=== PATIENT | male | born 1970 | race Caucasian/White ===

== ENCOUNTER 2017-01-09 09:15 | Emergency (ER) | payer OTHER ==
[2017-01-09 09:20] VITALS: BP 155/90; PULSE 74; RESP 18; TEMP 97.8
[2017-01-09] MEDS ORDERED: PROPARACAINE 0.5% OPHTH DROPS 15 ML BTL BOTH EYES STA (09:28)
[2017-01-09] MEDS ORDERED: KETOTIFEN 0.025% OPHTH DROPS 5 ML BTL BOTH EYES STA (09:28)
[2017-01-09] MEDS ORDERED: TOBRAMYCIN 0.3% OPHTH DROPS 5 ML BTL BOTH EYES STA (09:29)
--- NOTE | 2017-01-09 09:41 | ED ---
Eye Problem HPI - General Chief complaint: Eye Problems Stated complaint: Eye Pain Time Seen by Provider: 01/09/17 09:25 Source: patient, RN notes reviewed Mode of arrival: ambulatory Limitations: no limitations - History of Present Illness Initial comments: 46-year-old male presents emergency Department chief complaint bilateral eye irritation. Patient states it started while at work but never had any contact to any chemicals that he knows of. Nothing/his eyes. Patient states she just feels there. She, burning. Patient has not tried any eyedrops. Denies any visual changes. Patient states it's tearing and some crusting noted. Patient states he was glasses for vision. Patient offers no other complaints. - Related Data Home Medications Medication Instructions Recorded Confirmed No Known Home Medications [No 01/09/17 01/09/17 Known Home Medications] Allergies Allergy/AdvReac Type Severity Reaction Status Date / Time Penicillins Allergy Swelling Verified 01/09/17 09:20 Review of Systems ROS Statement: Those systems with pertinent positive or pertinent negative responses have been documented in the HPI. ROS Other: All systems not noted in ROS Statement are negative. Past Medical History Past Medical History: Seizure Disorder History of Any Multi-Drug Resistant Organisms: None Reported Past Surgical History: No Surgical Hx Reported Past Psychological History: No Psychological Hx Reported Smoking Status: Current every day smoker Past Alcohol Use History: None Reported Past Drug Use History: None Reported General Exam Limitations: no limitations General appearance: alert, in no apparent distress Head exam: Present: atraumatic, normocephalic, normal inspection Eye exam: Present: PERRL, EOMI, conjunctival injection, other (Patient states that his symptoms improved with proparacaine, Wood's lamp and dye were used to evaluate that there is some conjunctival irritation noted). Absent: normal appearance, scleral icterus, periorbital swelling ENT exam: Present: normal exam, normal oropharynx, mucous membranes moist, TM's normal bilaterally, normal external ear exam Neck exam: Present: normal inspection. Absent: tenderness, meningismus, lymphadenopathy Respiratory exam: Present: normal lung sounds bilaterally. Absent: respiratory distress, wheezes, rales, rhonchi, stridor Cardiovascular Exam: Present: regular rate, normal rhythm, normal heart sounds. Absent: systolic murmur, diastolic murmur, rubs, gallop, clicks Course Vital Signs 01/09/17 09:18 Temperature 97.8 F Pulse Rate 74 Respiratory 18 Rate Blood Pressure 155/90 O2 Sat by Pulse 100 Oximetry Medical Decision Making - Medical Decision Making 46-year-old male presents emergency Department with chief complaint of eye irritation. Patient appears to have ALLERGIC versus bacterial conjunctivitis. Patient will be given the door and Tobrex eye drops. Return parameters were discussed. Patient will follow-up with ophthalmology. Disposition Clinical Impression: Conjunctivitis Disposition: HOME SELF-CARE Condition: Stable Instructions: Conjunctivitis (ED) Additional Instructions: Use Zaditor drops 1 drop to both eyes twice daily, use Tobrex eyedrops 1 drop every 4 hours while awake for 5 days.Please return to the Emergency Department if symptoms worsen or any other concerns. Referrals: None,Stated [Primary Care Provider] - 1-2 days Raúl Nunez MD [STAFF PHYSICIAN] - 1-2 days Time of Disposition: 09:40
== END 2017-01-09 10:01 | disposition home or self-care (01) ==
LOC: EC 09:15
DX: H10.9 Unspecified conjunctivitis (principal); F17.200 Nicotine dependence, unspecified, uncomplicated; Z88.0 Allergy status to penicillin
CPT/HCPCS: 99283

== ENCOUNTER 2017-05-15 19:15 | Emergency (ER) | payer OTHER ==
[2017-05-15] MEDS ORDERED: HYDROcodone/APAP 5-325MG 1 EACH TAB PO STA (21:00)
[2017-05-15] MEDS ORDERED: DIPH,PERTUS(ACELL)TETVAC-LF 0.5 ML VIAL IM ONE (21:00)
--- NOTE | 2017-05-15 21:07 | ED ---
Wound/Laceration HPI - General Chief Complaint: Wound/Laceration Stated Complaint: L hand laceration Time Seen by Provider: 05/15/17 20:56 Source: patient Mode of arrival: ambulatory Limitations: no limitations - History of Present Illness Initial Comments: 46-year-old male patient presented to emergency department today for evaluation of laceration to the third digit on his left hand. Injury occurred about 3.5 hours ago. Patient states he was at work, states that he was reaching up to change a coil when the steel part snapped back and hit him in the finger. Patient states he has significant pain to the finger however denies any numbness or tingling. States he does have full range of motion. Denies any hand or wrist pain. Denies any other injuries.Patient denies any headache, neck pain, back pain, chest pain, shortness of breath, dizziness, weakness, abdominal pain, nausea, vomiting, or difficulties with bowel movements or urination. Patient is not sure when he had his last tetanus vaccination. - Related Data Home Medications Medication Instructions Recorded Confirmed carBAMazepine [TEGretol] 1 tab PO DAILY 05/15/17 05/15/17 Previous Rx's Medication Instructions Recorded Cephalexin [Keflex] 500 mg PO Q8HR #21 cap 05/15/17 Allergies Allergy/AdvReac Type Severity Reaction Status Date / Time Penicillins Allergy Swelling Verified 05/15/17 19:27 Review of Systems ROS Statement: Those systems with pertinent positive or pertinent negative responses have been documented in the HPI. ROS Other: All systems not noted in ROS Statement are negative. Past Medical History Past Medical History: Seizure Disorder History of Any Multi-Drug Resistant Organisms: None Reported Past Surgical History: No Surgical Hx Reported Past Psychological History: No Psychological Hx Reported Smoking Status: Current every day smoker Past Alcohol Use History: None Reported Past Drug Use History: None Reported General Exam Limitations: no limitations General appearance: alert, in no apparent distress Respiratory exam: Present: normal lung sounds bilaterally. Absent: respiratory distress, wheezes, rales, rhonchi, stridor Cardiovascular Exam: Present: regular rate, normal rhythm, normal heart sounds. Absent: systolic murmur, diastolic murmur, rubs, gallop, clicks Extremities exam: Present: full ROM, normal capillary refill, other. Absent: normal inspection (Third digit left hand shows a 3 cm flap laceration to the distal palmar aspect. Skin pink, warm, and dry. Bleeding controlled. Cap refill less than 3 seconds.), tenderness, pedal edema, joint swelling, calf tenderness Neurological exam: Present: alert, oriented X3, CN II-XII intact Psychiatric exam: Present: normal affect, normal mood Skin exam: Present: warm, dry, intact, normal color. Absent: rash Course Vital Signs 05/15/17 19:26 Temperature 98.5 F Pulse Rate 71 Respiratory 20 Rate Blood Pressure 135/89 O2 Sat by Pulse 98 Oximetry Medical Decision Making - Medical Decision Making 46-year-old male patient presented for evaluation of laceration to the left third finger. X-ray was obtained to rule out open fracture, x-ray was negative for any acute osseous abnormalities. X-ray did show a possible 1 mm faint foreign body anterior to the distal phalanx. Wound was explored extensively, irrigated extensively no evidence of foreign body noted. Laceration was sutured. Bacitracin and dressing applied by nursing staff. 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 Patient discharged with instructions to watch for infection. Instructed regarding wound care. Instructed to return in 7 days for suture removal. Patient instructed follow up with primary care physician for recheck in 1-2 days. Instructed to return here immediately for any new, worsening, or concerning symptoms. Patient verbalizes understanding and agreement with this plan. - Radiology Data Radiology results: report reviewed, image reviewed 3 views of the left third finger shows no fracture or dislocation. Joint spaces are fairly normal. There is a faint 1 mm density anterior to the distal phalanx on the lateral view that could be a foreign body. There is soft tissue swelling anteriorly as well. Impression by Dr. Johnson shows possible foreign body. Soft tissue swelling. Disposition Clinical Impression: Finger laceration Disposition: HOME SELF-CARE Condition: Good Instructions: Care For Your Stitches (ED), Laceration (ED) Additional Instructions: Complete antibiotic prescription in full. Keep area clean and dry. Scrubbed gently with warm soapy water twice daily. Keep dressing on for the next 24 hours. No use of right hand until stitches are removed. Return in 7 days for removal of stitches. Follow up with primary care physician for recheck in 1-2 days. Return immediately for any new, worsening, or concerning symptoms. Prescriptions: Cephalexin [Keflex] 500 mg PO Q8HR #21 cap Referrals: Yashira Omalley MD [Primary Care Provider] - 1-2 days Time of Disposition: 22:15
--- NOTE | 2017-05-15 21:25 | XR ---
EXAMINATION TYPE: XR finger LT DATE OF EXAM: 05/15/2017 COMPARISON: NONE HISTORY: Laceration and pain TECHNIQUE: 3 views FINDINGS: I see no fracture nor dislocation. Joint spaces are fairly normal. There is a faint 1 mm de nsity anterior to the distal phalanx on the lateral view that could be a foreign body. There is soft tissue swelling anteriorly as well. IMPRESSION: Possible foreign body. Soft tissue swelling.
[2017-05-15 22:32] VITALS: BP 123/80; PULSE 68; RESP 16; TEMP 97.4
== END 2017-05-15 22:30 | disposition home or self-care (01) ==
LOC: EC 19:15
DX: S61.213A Laceration without foreign body of left middle finger without damage to nail, initial encounter (principal); W45.8XXA Other foreign body or object entering through skin, initial encounter; Y93.89 Activity, other specified; Y92.89 Other specified places as the place of occurrence of the external cause; Y99.0 Civilian activity done for income or pay; Z23 Encounter for immunization; G40.909 Epilepsy, unspecified, not intractable, without status epilepticus; F17.200 Nicotine dependence, unspecified, uncomplicated; Z79.899 Other long term (current) drug therapy; Z88.0 Allergy status to penicillin
CPT/HCPCS: 12042; 90471; 90715; 99283

== ENCOUNTER 2018-02-19 22:41 | Emergency (ER) | payer BC, OTHER ==
[2018-02-19 22:48] VITALS: RESP 18; TEMP 98.4
--- NOTE | 2018-02-20 00:38 | XR ---
EXAMINATION TYPE: XR finger RT DATE OF EXAM: 02/20/2018 COMPARISON: NONE HISTORY: Laceration TECHNIQUE: 3 views FINDINGS: There is some soft tissue deformity at the end of the right index finger. I see no sign of radiopaque foreign body. I see no fracture. IMPRESSION: Laceration deformity. No fracture seen.
[2018-02-20] MEDS ORDERED: GELATIN SPONGE,ABSORB (SMALL) 1 EACH SPONGE TOPICAL STA (00:58)
--- NOTE | 2018-02-20 00:58 | ED ---
Wound/Laceration HPI - General Chief Complaint: Wound/Laceration Stated Complaint: finger laceration [facility] Time Seen by Provider: 02/19/18 23:54 Source: patient, RN notes reviewed, old records reviewed Mode of arrival: ambulatory Limitations: no limitations - History of Present Illness Initial Comments: This patient is a 47 year old male with CC of right index finger laceration at work. 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 Reports full ROM, and the bleeding would not stop. He reports that he last had his tetanus short close to a year ago. Denies other injury. - Related Data Home Medications Medication Instructions Recorded Confirmed carBAMazepine [TEGretol] 200 mg PO BID 05/15/17 10/20/17 Ibuprofen [Motrin Ib] 200 - 800 mg PO Q6H PRN 10/20/17 10/20/17 Previous Rx's Medication Instructions Recorded Acetaminophen-Codeine 300-30mg 1 tab PO Q6H PRN #20 tablet 10/20/17 [Tylenol #3] Cyclobenzaprine [Flexeril] 10 mg PO TID #20 tab 10/20/17 Dexamethasone 0.75 mg PO DAILY #12 tab 10/20/17 Sulfamethox-Tmp 800-160Mg [Bactrim 1 tab PO Q12HR #14 tab 02/20/18 DS 800-160 mg] Allergies Allergy/AdvReac Type Severity Reaction Status Date / Time Penicillins Allergy Swelling Verified 02/19/18 22:48 Review of Systems ROS Statement: Those systems with pertinent positive or pertinent negative responses have been documented in the HPI. ROS Other: All systems not noted in ROS Statement are negative. Past Medical History Past Medical History: Seizure Disorder History of Any Multi-Drug Resistant Organisms: None Reported Past Surgical History: No Surgical Hx Reported Past Psychological History: No Psychological Hx Reported Smoking Status: Current every day smoker Past Alcohol Use History: None Reported Past Drug Use History: None Reported General Exam - General Exam Comments Initial Comments: Well appearing 47 year old male, no distress. Limitations: no limitations General appearance: alert, in no apparent distress Head exam: Present: atraumatic, normocephalic, normal inspection Eye exam: Present: normal appearance, PERRL, EOMI. Absent: scleral icterus, conjunctival injection, periorbital swelling ENT exam: Present: normal exam, mucous membranes moist Neck exam: Present: normal inspection. Absent: tenderness, meningismus, lymphadenopathy Respiratory exam: Present: normal lung sounds bilaterally. Absent: respiratory distress, wheezes, rales, rhonchi, stridor Cardiovascular Exam: Present: regular rate, normal rhythm, normal heart sounds. Absent: systolic murmur, diastolic murmur, rubs, gallop, clicks Right Hand L/R Back: 1 - 2cm lacertion and avulsion of tip of finger and side of nail. Neuro motor exam: Present: wrist extension intact, thumb opposition intact, thumb adduction intact, fingers 2-5 abduction intact Vascular: Present: normal capillary refill Back exam: Present: normal inspection Neurological exam: Present: alert, oriented X3, CN II-XII intact Psychiatric exam: Present: normal affect, normal mood Skin exam: Present: warm, dry, intact, normal color. Absent: rash Course Vital Signs 02/19/18 02/20/18 22:46 01:36 Temperature 98.4 F Pulse Rate 65 60 Respiratory 18 18 Rate Blood Pressure 153/85 138/69 O2 Sat by Pulse 98 100 Oximetry Procedures - Laceration Laceration #1 Site: hand (2nd index finger. ) Size (cm): 2 Description: linear Depth: involves muscle layer Anesthetic Used: lidocaine 1% Anesthesia Technique: nerve block Amount (mls): 4 Pre-repair: wound explored, irrigated extensively Type of Sutures: nylon Size of Sutures: 5-0 Number of Sutures: 1 (gelfoam) Technique: simple, interrupted Patient Tolerated Procedure: well, no complications, other (Patient had one suture and I used gelfoam to cover open finger tip. ) Medical Decision Making - Medical Decision Making This patient is a 47 year odl male with Right index finger tip laceration while at work. PAtient wound was irrigated thorougly. PAtient had one stitch placed and gelfoam and tube gauze used to cover where skin was avulsed. He reports his tetanus is up to date. Xray showss no bony abnormalities. Due to dirty wound, will start patient on keflex. Discussed follow up with hand surgeon for reevaluation for skin avulsion. - Radiology Data Radiology results: report reviewed Xray reviewed and shows no fracture, evidence of soft tissue injury. Disposition Clinical Impression: Nailbed laceration, finger, Avulsion, finger tip Disposition: HOME SELF-CARE Condition: Good Instructions: Finger Laceration (ED) Additional Instructions: Patient has a follow-up with technical services specialist. Patient is to keep the finger wrapped up with wrap. Return to emergency department if any alarming signs or symptoms occur. Prescriptions: Sulfamethox-Tmp 800-160Mg [Bactrim DS 800-160 mg] 1 tab PO Q12HR #14 tab Is patient prescribed a controlled substance at d/c from ED?: No When asked, does pt state using other controlled substances?: No If prescribed controlled substance>3 days was MAPS reviewed?: No If opioid is for acute pain is fill amount 7 days or less?: No If Rx opioid, was Start Talking consent form obtained?: No Referrals: Yashira Omalley MD [Primary Care Provider] - 1-2 days Leander Johnson DO [Doctor of Osteopathic Medicine] - 1-2 days Time of Disposition: 00:57
[2018-02-20 01:37] VITALS: BP 138/69; PULSE 60
== END 2018-02-20 01:42 | disposition home or self-care (01) ==
LOC: EC 22:41
DX: S61.310A Laceration without foreign body of right index finger with damage to nail, initial encounter (principal); G40.909 Epilepsy, unspecified, not intractable, without status epilepticus; F17.200 Nicotine dependence, unspecified, uncomplicated; Z79.899 Other long term (current) drug therapy; Z88.0 Allergy status to penicillin; W27.8XXA Contact with other nonpowered hand tool, initial encounter; Y92.69 Other specified industrial and construction area as the place of occurrence of the external cause; Y99.0 Civilian activity done for income or pay
CPT/HCPCS: 12001; 99283

== ENCOUNTER → 2018-04-18 | Outpatient (CLI) | payer OTHER ==
--- NOTE | 2018-04-19 08:40 | ECHOF ---
Referral Reason:Cardiac Murmur R011 MEASUREMENTS -------- HEIGHT: 172.7 cm WEIGHT: 74.4 kg BP: RVIDd: 2.7 cm (< 3.3) IVSd: 1.2 cm (0.6 - 1.1) LVIDd: 4.5 cm (3.9 - 5.3) LVPWd: 1.1 cm (0.6 - 1.1) IVSs: 1.4 cm LVIDs: 3.2 cm LVPWs: 1.4 cm LAESV Index (A-L): 24.74 ml/m Ao Diam: 3.0 cm (2.0 - 3.7) AV Cusp: 1.7 cm (1.5 - 2.6) LA Diam: 3.0 cm (2.7 - 3.8) EPSS: 0.4 cm MV E Rodri: 1.03 m/s MV DecT: 226 ms MV A Rodri: 0.69 m/s MV E/A Ratio: 1.50 RAP: 5.00 mmHg RVSP: 16.01 mmHg MV EF SLOPE: 136.46 mm/s (70 - 150) MV EXCURSION: 1.74 cm (> 18.000) FINDINGS -------- Sinus rhythm. This was a technically good study. The left ventricular size is normal. There is mild concentric left ventricular hypertrophy. Overa ll left ventricular systolic function is normal with, an EF between 55 - 60 %. The right ventricle is normal in size and function. Normal LA size by volume 22+/-6 ml/m2. The right atrium is normal in size. There is mild aortic valve sclerosis. There is no evidence of aortic regurgitation. There is no e vidence of aortic stenosis. The mitral valve leaflets are mildly thickened. There is trace to mild mitral regurgitation. Trace tricuspid regurgitation present. Right ventricular systolic pressure is normal at < 35 mmHg. There is no evidence of pulmonary hypertension. Trace/mild (physiologic) pulmonic regurgitation. The aortic root size is normal. Normal inferior vena cava with normal inspiratory collapse consistent with estimated right atrial pre ssure of 5 mmHg. There is no pericardial effusion. CONCLUSIONS -------- 1. Sinus rhythm. 2. This was a technically good study. 3. The left ventricular size is normal. 4. There is mild concentric left ventricular hypertrophy. 5. Overall left ventricular systolic function is normal with, an EF between 55 - 60 %. 6. Normal LA size by volume 22+/-6 ml/m2. 7. There is mild aortic valve sclerosis. 8. The mitral valve leaflets are mildly thickened. 9. There is trace to mild mitral regurgitation. 10. Trace tricuspid regurgitation present. 11. Right ventricular systolic pressure is normal at < 35 mmHg. 12. There is no evidence of pulmonary hypertension. 13. Trace/mild (physiologic) pulmonic regurgitation. 14. The aortic root size is normal. 15. There is no pericardial effusion. FLOOR SUPERVISOR: Stephon Cantor RDCS
== END | disposition home or self-care (01) ==
LOC: RADECHMAIN 10:46
PROVIDERS: ATTEND Family Medicine
DX: I08.0 Rheumatic disorders of both mitral and aortic valves (principal)
CPT/HCPCS: 93306

== ENCOUNTER 2018-11-14 17:34 | Emergency (ER) | payer OTHER ==
[2018-11-14] MEDS ORDERED: SODIUM CHLORIDE 0.9% 1,000 ML IV STA (18:47)
[2018-11-14] MEDS ORDERED: KETOROLAC 30 MG/ML 1 ML VIAL IVP STA (18:47)
[2018-11-14] MEDS ORDERED: HYDROmorphone 0.5 MG/0.5 ML SYRINGE IVP STA (18:47)
[2018-11-14] MEDS ORDERED: ONDANSETRON 4 MG/2 ML VIAL IVP STA (18:47)
--- NOTE | 2018-11-14 18:50 | ED ---
Abdominal Pain HPI - General Chief Complaint: Abdominal Pain Stated Complaint: abdominal pain Time Seen by Provider: 11/14/18 18:35 Source: patient Mode of arrival: ambulatory Limitations: no limitations - History of Present Illness Initial Comments: 48-year-old male patient presents to the emergency department today for evaluation of upper abdominal pain. Patient states the pain started at 245 this afternoon. States it is an intense cramping/stabbing type pain to the midepigastric and left upper quadrant region. Patient states whenever he moves , coughs, or sneezes the pain intensifies and radiates through to his back. Denies any history of similar symptoms. Denies nausea, vomiting, fever, chills , constipation, diarrhea with this. States he is urinating without difficulty and denies hematuria, dysuria, urinary urgency, urinary frequency. Denies any history of abdominal surgery. Denies any chest pain or shortness of breath. Patient denies any recent rash, numbness, tingling, dizziness, weakness, headache, visual changes, or any other complaints. - Related Data Home Medications Medication Instructions Recorded Confirmed carBAMazepine [TEGretol] 200 mg PO BID 05/15/17 11/14/18 Ibuprofen [Motrin Ib] 800 mg PO TID PRN 11/14/18 11/14/18 Previous Rx's Medication Instructions Recorded Famotidine [Pepcid] 20 mg PO DAILY #30 tablet 11/14/18 Allergies Allergy/AdvReac Type Severity Reaction Status Date / Time Penicillins Allergy Swelling Verified 11/14/18 20:53 Review of Systems ROS Statement: Those systems with pertinent positive or pertinent negative responses have been documented in the HPI. ROS Other: All systems not noted in ROS Statement are negative. Past Medical History Past Medical History: Seizure Disorder History of Any Multi-Drug Resistant Organisms: None Reported Past Surgical History: No Surgical Hx Reported Past Psychological History: No Psychological Hx Reported Smoking Status: Current every day smoker Past Alcohol Use History: None Reported Past Drug Use History: None Reported General Exam Limitations: no limitations General appearance: alert, in no apparent distress, other (Social well-developed , well-nourished adult male patient in no acute distress. Vital signs upon presentation are temperature 98.3F, pulse 67, respirations 16, blood pressure 121/69, pulse ox 98% on room air.) Eye exam: Present: normal appearance, PERRL, EOMI. Absent: scleral icterus, conjunctival injection, periorbital swelling ENT exam: Present: normal exam, normal oropharynx, mucous membranes moist Respiratory exam: Present: normal lung sounds bilaterally. Absent: respiratory distress, wheezes, rales, rhonchi, stridor Cardiovascular Exam: Present: regular rate, normal rhythm, normal heart sounds. Absent: systolic murmur, diastolic murmur, rubs, gallop, clicks GI/Abdominal exam: Present: soft, tenderness (Midepigastric and left upper quadrant tenderness), normal bowel sounds. Absent: distended, guarding, rebound , rigid Neurological exam: Present: alert, oriented X3, CN II-XII intact Psychiatric exam: Present: normal affect, normal mood Skin exam: Present: warm, dry, intact, normal color. Absent: rash Course Vital Signs 11/14/18 11/14/18 11/14/18 17:56 21:00 22:20 Temperature 98.3 F 97.8 F 97.8 F Pulse Rate 67 58 L 52 L Respiratory 16 18 18 Rate Blood Pressure 121/69 127/88 116/74 O2 Sat by Pulse 98 98 100 Oximetry Medical Decision Making - Medical Decision Making 48 old male patient presents to the emergency department today for evaluation of left upper and midepigastric abdominal pain. Patient did report nausea but no vomiting. Physical examination did reveal tenderness to the midepigastric and left upper quadrant abdomen. Labs reviewed and were unremarkable however given patient's intensity of pain and evidence of tenderness we did perform CT of the abdomen and pelvis. This showed no acute abnormalities. Given patient' s symptoms there is concern for gastritis we will start Pepcid. Be discharged to follow-up with his primary care physician to discuss referral to gastroenterology and possible upper endoscopy scope. Return parameters were discussed in detail. He verbalizes understanding and agrees with this plan. - Lab Data Result diagrams: 11/14/18 19:35 11/14/18 19:35 Lab Results 11/14/18 11/14/18 11/14/18 Range/Units 19:35 19:35 19:35 WBC 5.8 (3.8-10.6) k/uL RBC 4.75 (4.30-5.90) m/uL Hgb 14.5 (13.0-17.5) gm/dL Hct 44.2 (39.0-53.0) % MCV 92.9 (80.0-100.0) fL MCH 30.6 (25.0-35.0) pg MCHC 32.9 (31.0-37.0) g/dL RDW 13.0 (11.5-15.5) % Plt Count 232 (150-450) k/uL Neutrophils % 46 % Lymphocytes % 43 % Monocytes % 6 % Eosinophils % 3 % Basophils % 1 % Neutrophils # 2.6 (1.3-7.7) k/uL Lymphocytes # 2.5 (1.0-4.8) k/uL Monocytes # 0.3 (0-1.0) k/uL Eosinophils # 0.2 (0-0.7) k/uL Basophils # 0.1 (0-0.2) k/uL Sodium 140 (137-145) mmol/L Potassium 4.6 (3.5-5.1) mmol/L Chloride 104 (98-107) mmol/L Carbon Dioxide 28 (22-30) mmol/L Anion Gap 8 mmol/L BUN 9 (9-20) mg/dL Creatinine 0.91 (0.66-1.25) mg/dL Est GFR (CKD-EPI)AfAm >90 (>60 ml/min/1.73 sqM) Est GFR (CKD-EPI)NonAf >90 (>60 ml/min/1.73 sqM) Glucose 98 (74-99) mg/dL Calcium 9.9 (8.4-10.2) mg/dL Total Bilirubin 0.5 (0.2-1.3) mg/dL AST 30 (17-59) U/L ALT 46 (21-72) U/L Alkaline Phosphatase 85 (38-126) U/L Total Protein 7.5 (6.3-8.2) g/dL Albumin 4.7 (3.5-5.0) g/dL Amylase 44 (30-110) U/L Lipase 59 (23-300) U/L Urine Color Yellow Urine Appearance Clear (Clear) Urine pH 6.5 (5.0-8.0) Ur Specific [place] 1.007 (1.001-1.035) Urine Protein Negative (Negative) Urine Glucose (UA) Negative (Negative) Urine Ketones Negative (Negative) Urine Blood Negative (Negative) Urine Nitrite Negative (Negative) Urine Bilirubin Negative (Negative) Urine Urobilinogen <2.0 (<2.0) mg/dL Ur Leukocyte Esterase Negative (Negative) - Radiology Data Radiology results: report reviewed, image reviewed 2 views of the abdomen are obtained. Report was reviewed in its entirety. Impression by Dr. Johnson shows nonacute abdomen with no change. CT of the abdomen and pelvis was obtained with contrast. Report was reviewed in its entirety. Impression by Dr. Johnson shows negative computed tomography scan of the abdomen and pelvis. No adverse change compared to old exam. Disposition Clinical Impression: Abdominal pain Disposition: HOME SELF-CARE Condition: Good Instructions (If sedation given, give patient instructions): Gastritis (ED), Diet for Stomach Ulcers and Gastritis (ED), Abdominal Pain (ED) Additional Instructions: Take medications as directed. Follow-up with your primary care physician for further evaluation in 1-2 days. Discuss possible referral to GI specialist. Return to the emergency department immediately for any new, worsening, or concerning symptoms. Prescriptions: Famotidine [Pepcid] 20 mg PO DAILY #30 tablet Is patient prescribed a controlled substance at d/c from ED?: No Referrals: Juan Underwood DO [Primary Care Provider] - 1-2 days Time of Disposition: 22:12
[2018-11-14 19:58] LABS: Appearance,Urine Clear (Clear); Bilirubin,Urine Negative (Negative); Blood,Urine Negative (Negative); Color,Urine Yellow; Glucose,Urine (UA) Negative (Negative); Ketones,Urine Negative (Negative); Leukocyte Esterase,Urine Negative (Negative); Nitrite,Urine Negative (Negative); PH, Urine 6.5 (5.0-8.0); Protein,Urine Negative (Negative); Specific Gravity,Urine 1.007 (1.001-1.035); Urobilinogen,Urine <2.0 mg/dL (<2.0)
[2018-11-14 20:00] LABS: Basophils # (A) 0.1 k/uL (0-0.2); Basophils % (A) 1 %; Eosinophils # (A) 0.2 k/uL (0-0.7); Eosinophils % (A) 3 %; HCT 44.2 % (39.0-53.0); HGB 14.5 gm/dL (13.0-17.5); Lymphocytes # (A) 2.5 k/uL (1.0-4.8); Lymphocytes % (A) 43 %; MCH 30.6 pg (25.0-35.0); MCHC 32.9 g/dL (31.0-37.0); MCV 92.9 fL (80.0-100.0); Mean Platelet Volume 7.7; Monocytes # (A) 0.3 k/uL (0-1.0); Monocytes % (A) 6 %; Neutrophils # (A) 2.6 k/uL (1.3-7.7); Neutrophils % (A) 46 %; Platelet Count 232 k/uL (150-450); RBC 4.75 m/uL (4.30-5.90); WBC 5.8 k/uL (3.8-10.6)
--- NOTE | 2018-11-14 20:06 | XR ---
EXAMINATION TYPE: XR KUB DATE OF EXAM: 11/14/2018 COMPARISON: October 20, 2017 HISTORY: Abdominal pain TECHNIQUE: 2 views upright FINDINGS: There is no sign of intestinal obstruction or pneumoperitoneum. Fecal pattern is normal. Th ere is no evidence of a mass. There are no pathologic calcifications. Lung bases are clear. IMPRESSION: Nonacute abdomen. No change.
[2018-11-14 20:17] LABS: ALT 46 U/L (21-72); AST 30 U/L (17-59); Albumin 4.7 g/dL (3.5-5.0); Alkaline Phosphatase 85 U/L (38-126); Amylase 44 U/L (30-110); Anion Gap 8 mmol/L; Blood Urea Nitrogen 9 mg/dL (9-20); Calcium 9.9 mg/dL (8.4-10.2); Carbon Dioxide 28 mmol/L (22-30); Chloride 104 mmol/L (98-107); Glucose 98 mg/dL (74-99); Lipase 59 U/L (23-300); Potassium 4.6 mmol/L (3.5-5.1); Sodium 140 mmol/L (137-145); Total Bilirubin 0.5 mg/dL (0.2-1.3); Total Protein 7.5 g/dL (6.3-8.2)
--- NOTE | 2018-11-14 20:58 | CT ---
EXAMINATION TYPE: CT abdomen pelvis w con DATE OF EXAM: 11/14/2018 COMPARISON: 10/20/2017 HISTORY: Abdominal pain today CT DLP: 661 mGycm Automated exposure control for dose reduction was used. TECHNIQUE: Helical acquisition of images was performed from the lung bases through the pelvis. CONTRAST: Performed without Oral Contrast and with IV Contrast, patient injected with 100 mL of Isovue 300. FINDINGS: Lung bases are clear. There is no pleural effusion. Heart size is normal. Liver spleen pancreas gallbladder appear normal. Bile ducts are not dilated. There is no adrenal mass . Kidneys show satisfactory contrast opacification. There is no hydronephrosis. Bladder distends smoo thly. Ureters are not dilated. There is no retroperitoneal adenopathy. There is no inguinal hernia. There is no free fluid in the pelvis. There is no mesenteric edema. Appe ndix is posterior and appears normal. There is no evidence of free air. Lumbar spine appears intact. I see no bony destructive process. IMPRESSION: NEGATIVE CT SCAN OF THE ABDOMEN AND PELVIS. NO ADVERSE CHANGE COMPARED TO OLD EXAM.
[2018-11-14 21:17] VITALS: RESP 18; TEMP 97.8
[2018-11-14 22:21] VITALS: BP 116/74; PULSE 52
== END 2018-11-14 22:21 | disposition home or self-care (01) ==
LOC: EC 17:34
DX: R10.12 Left upper quadrant pain (principal); R10.13 Epigastric pain; R11.0 Nausea; R10.812 Left upper quadrant abdominal tenderness; R10.816 Epigastric abdominal tenderness; G40.909 Epilepsy, unspecified, not intractable, without status epilepticus; F17.200 Nicotine dependence, unspecified, uncomplicated; Z79.899 Other long term (current) drug therapy; Z88.0 Allergy status to penicillin
CPT/HCPCS: 36415; 74018; 74177; 80053; 81003; 82150; 83690; 85025; 96361; 96374; 96375; 99284

== ENCOUNTER → 2019-02-05 | Outpatient (CLI) | payer OTHER ==
--- NOTE | 2019-02-05 12:29 | XR ---
EXAMINATION TYPE: XR orbit detect foreign body DATE OF EXAM: 02/05/2019 COMPARISON: NONE HISTORY: Pre-MRI orbits TECHNIQUE: 3 views submitted FINDINGS: Osseous structures intact. No metallic foreign body identified. Changes of chronic sinusiti s. IMPRESSION: No metallic foreign body overlying the orbits.
--- NOTE | 2019-02-05 15:34 | MR ---
MR brain without contrast HISTORY: Localized symptomatic epilepsy Multiplanar multisequence imaging through the brain No comparisons Cervical medullary junction, sclerosis, pituitary, cerebellopontine angles are normal. There are norm al vascular flow voids. There is no hemorrhage or hydrocephalus. Brain signal is maintained. Orbits s how symmetric appearance. Paranasal sinuses are well aerated. Mild mucosal disease present in the max illary sinus. There is no restricted diffusion. IMPRESSION: Normal brain MRI. Mild sinus disease.
== END | disposition home or self-care (01) ==
LOC: RADMRIMAIN 11:39
PROVIDERS: ATTEND Psychiatry & Neurology Neurology
DX: G40.109 Localization-related (focal) (partial) symptomatic epilepsy and epileptic syndromes with simple partial seizures, not intractable, without status epilepticus (principal); Z13.89 Encounter for screening for other disorder
CPT/HCPCS: 70030; 70551

== ENCOUNTER 2019-04-27 22:22 | Emergency (ER) | payer OTHER ==
[2019-04-27 22:37] VITALS: RESP 18
[2019-04-27] MEDS ORDERED: DEXAMETHASONE SOD PHOSPHATE 10 MG/ML 1 ML VIAL IM STA (22:56)
[2019-04-27] MEDS ORDERED: HYDROcodone/APAP 5-325MG 1 EACH TAB PO STA (22:57)
--- NOTE | 2019-04-27 23:35 | XR ---
EXAM: XR Lumbar Spine, 2 or 3 Views CLINICAL HISTORY: ITS.REASON XR Reason: Pain TECHNIQUE: Frontal and lateral views of the lumbar spine. COMPARISON: No relevant prior studies available. FINDINGS: Vertebrae: Unremarkable. No acute fracture. Normal alignment. Disc spaces: No significant narrowing. Soft tissues: Unremarkable. IMPRESSION: No acute findings.
--- NOTE | 2019-04-27 23:50 | XR ---
EXAM: XR Right Hip With Pelvis When Performed, 2 or 3 Views CLINICAL HISTORY: ITS.REASON XR Reason: Pain TECHNIQUE: Two or three views of the right hip, with pelvis when performed. COMPARISON: No relevant prior studies available. FINDINGS: Bones/joints: No acute fracture. No dislocation. Soft tissues: Unremarkable. IMPRESSION: No acute findings.
--- NOTE | 2019-04-28 00:33 | ED ---
Extremity Problem HPI - General Chief complaint: Extremity Problem,Nontraumatic Stated complaint: Leg pain Time Seen by Provider: 04/27/19 22:42 Source: patient Mode of arrival: wheelchair Limitations: physical limitation - History of Present Illness Initial comments: 48-year-old male presenting with right hip pain associated with tingling that began while at work. He states it is worse with ambulation, not alleviated by anything. Denies any injury to the area or similar symptoms in the past. Denies any saddle anesthesia, bowel or bladder dysfunction. Denies fevers, chills, or joint injections. - Related Data Home Medications Medication Instructions Recorded Confirmed carBAMazepine [TEGretol] 400 mg PO QAM 05/15/17 04/27/19 carBAMazepine [TEGretol] 200 mg PO HS 04/27/19 04/27/19 Previous Rx's Medication Instructions Recorded HYDROcodone/APAP 5-325MG [[place] 1 tab PO Q6HR PRN 3 Days #12 tab 04/28/19 5-325] Ibuprofen [Motrin] 600 mg PO Q6HR PRN #30 tab 04/28/19 Allergies Allergy/AdvReac Type Severity Reaction Status Date / Time Penicillins Allergy Swelling Verified 04/27/19 23:21 Review of Systems ROS Statement: Those systems with pertinent positive or pertinent negative responses have been documented in the HPI. Review of Systems Constitutional: Denies fever, chills Eyes: Denies change in vision, Denies pain Ears, nose, mouth, throat: Denies headaches, Denies sore throat Cardiovascular: Denies chest pain. Denies palpitations Respiratory: Denies shortness of breath, Denies cough Gastrointestinal: Denies abdominal pain. Denies nausea, vomiting, diarrhea. Genitourinary: Denies hematuria, Denies infections Musculoskeletal: Positive pain, Denies swelling Integumentary: Denies rash Neurological: Denies headache, focal weakness, focal numbness Psychiatric: Denies anxiety, Denies depression Hematologic/Lymphatic: Denies easy bleeding or bruising ROS Other: All systems not noted in ROS Statement are negative. Past Medical History Past Medical History: Hyperlipidemia, Seizure Disorder History of Any Multi-Drug Resistant Organisms: None Reported Past Surgical History: No Surgical Hx Reported Past Psychological History: No Psychological Hx Reported Smoking Status: Current every day smoker Past Alcohol Use History: None Reported Past Drug Use History: None Reported General Exam - General Exam Comments Initial Comments: General: Awake, alert, No acute Distress HENT: Normocephalic. Atraumatic Eyes: PERRL. EOMI. No scleral icterus. No injected conjunctiva Neck: Full ROM Chest/Lungs: Clear to auscultation bilaterally. No wheezing, rhonchi, or rales Cardiac: Regular rate, rhythm. No murmurs or rubs Abdomen/GI: Soft, nontender, nondistended. No rebound, guarding, or rigidity. Musculoskeletal: Full ROM. No midline cervical, thoracic, lumbar spine tenderness. Skin: Warm, dry, intact Neurologic: A/Ox3, no weakness, no sensory deficit, no abnormal gait, no coordination deficit. L4 through S1 sensation intact bilaterally Limitations: physical limitation Course Vital Signs 04/27/19 04/28/19 22:34 01:21 Temperature 98.1 F 98 F Pulse Rate 84 79 Respiratory 18 18 Rate Blood Pressure 158/71 137/68 O2 Sat by Pulse 98 99 Oximetry Medical Decision Making - Medical Decision Making 48-year-old male patient with right hip pain. Initial exam the patient is awake, alert, no acute distress. VSS. Patient imaging was negative. Symptoms improved on the department. He is provided with pain medication as well as orthopedic follow-up. Able to ambulate without any distress. No further emergent workup indicated. The patient was given return to ED instructions. They were instructed to follow up with their primary care provider. Stable for discharge at this time. Disposition Clinical Impression: Hip pain Disposition: HOME SELF-CARE Condition: Good Instructions (If sedation given, give patient instructions): Lumbar Radiculopathy (ED), Hip Pain (ED) Additional Instructions: Return to the emergency department if you have any trouble urinating, having bowel movements, or have numbness in your groin. Prescriptions: Ibuprofen [Motrin] 600 mg PO Q6HR PRN #30 tab PRN Reason: Pain HYDROcodone/APAP 5-325MG [[place] 5-325] 1 tab PO Q6HR PRN 3 Days #12 tab PRN Reason: Pain Is patient prescribed a controlled substance at d/c from ED?: Yes Referrals: Juan Underwood DO [Primary Care Provider] - 1-2 days [facility] [Provider Group] - 1-2 days
[2019-04-28 01:41] VITALS: BP 137/68; PULSE 79; TEMP 98
== END 2019-04-28 01:22 | disposition home or self-care (01) ==
LOC: EC 22:22
DX: M25.551 Pain in right hip (principal); R20.2 Paresthesia of skin; G40.909 Epilepsy, unspecified, not intractable, without status epilepticus; F17.200 Nicotine dependence, unspecified, uncomplicated; Z88.0 Allergy status to penicillin; Z79.899 Other long term (current) drug therapy
CPT/HCPCS: 72100; 73502; 99283; 96372; J1100

== ENCOUNTER 2020-02-02 18:05 | Emergency (ER) | payer OTHER ==
[2020-02-02 18:10] VITALS: RESP 18
[2020-02-02] MEDS ORDERED: MORPHINE SULFATE 4 MG/ML SYRINGE IVP STA (18:23)
[2020-02-02] MEDS ORDERED: MORPHINE SULFATE 4 MG/ML SYRINGE IM STA (18:25)
--- NOTE | 2020-02-02 19:24 | XR ---
EXAMINATION TYPE: XR tibia fibula RT DATE OF EXAM: 02/02/2020 COMPARISON: None HISTORY: [place] popping after jumping TECHNIQUE: 2 view right tibia and fibula FINDINGS: No acute fractures or dislocations are evident. Soft tissues appear unremarkable. Joint spa henrietta appear preserved. Follow-up exam can be performed 7-10 days from acute trauma for continued pain. IMPRESSION: 1. Normal 2 view right tibia and fibula.
[2020-02-02] MEDS ORDERED: ACET/COD 300 MG/30 MG STARTER PACK 6 TAB BTL PO STA (19:42)
--- NOTE | 2020-02-02 19:49 | ED ---
Lower Extremity Injury HPI - General Chief Complaint: Extremity Injury, Lower Stated Complaint: Calf pain Time Seen by Provider: 02/02/20 18:13 Source: patient Mode of arrival: ambulatory Limitations: no limitations - History of Present Illness Initial Comments: Patient is a 49-year-old male presenting to emergency Department with a chief complaint of Pain. Patient reports she jumped up and on the way down he felt a sudden pop on his proximal calf region. Patient reports "it feels hard" now. Patient reports the pain is 10/10. Patient reports pain is exacerbated with full extension. Reports significant pain with palpation in the region. Does report taking a THC gummy bear for pain prior to arrival. Patient reports pain with ambulation. Denies any shortness of breath. - Related Data Home Medications Medication Instructions Recorded Confirmed carBAMazepine [TEGretol] 400 mg PO QAM 05/15/17 02/02/20 Ibuprofen [Advil] 200 mg PO ONCE PRN 02/02/20 02/02/20 Allergies Allergy/AdvReac Type Severity Reaction Status Date / Time Penicillins Allergy Swelling Verified 02/02/20 19:13 Review of Systems ROS Statement: Those systems with pertinent positive or pertinent negative responses have been documented in the HPI. ROS Other: All systems not noted in ROS Statement are negative. Past Medical History Past Medical History: Hyperlipidemia, Hypertension, Seizure Disorder History of Any Multi-Drug Resistant Organisms: None Reported Past Surgical History: No Surgical Hx Reported Past Psychological History: No Psychological Hx Reported Smoking Status: Current every day smoker Past Alcohol Use History: None Reported Past Drug Use History: Marijuana General Exam Limitations: no limitations General appearance: alert, in no apparent distress Head exam: Present: atraumatic, normocephalic, normal inspection Eye exam: Present: normal appearance, PERRL, EOMI Pupils: Present: normal accommodation ENT exam: Present: normal exam Neck exam: Present: normal inspection, full ROM Respiratory exam: Present: normal lung sounds bilaterally Cardiovascular Exam: Present: regular rate, normal rhythm, normal heart sounds Extremities exam: Present: tenderness (Tetanus in the popliteal region but mostly in the proximal gastrocnemius of the right lower extremity. No Achilles tendon tenderness.), normal capillary refill, calf tenderness, other (+2 dorsal is pedis and posterior tibialis). Absent: normal inspection (Swelling on the right calf. No ecchymosis in the region.), full ROM (Limited range of motion due to pain. Negative Avila test.) Back exam: Present: normal inspection, full ROM Neurological exam: Present: alert, oriented X3 Psychiatric exam: Present: normal affect, normal mood Skin exam: Present: warm, dry, intact, normal color Course Vital Signs 02/02/20 18:07 Temperature 97.8 F Pulse Rate 90 Respiratory 18 Rate Blood Pressure 145/79 O2 Sat by Pulse 98 Oximetry Procedures - Orthopedic Splinting/Casting Injury #1 Side: right Lower Extremity Injury Location: short leg Lower Extremity Immobilizer: posterior splint, Vern wrap, synthetic pre-padded splint Other Orthopedic Equipment: crutches Medical Decision Making - Medical Decision Making Patient is a 49-year-old male presenting to the emergency department with chief complaint of caffeine. Patient jumps and on the way down he felt sudden pop followed by a significant pain in the proximal. Exam patient has a negative Avila test. Most of the pain is concentrated in the proximal calf region. I suspect the patient has suffered an injury to the gastrocnemius muscle. Posterior splint was applied. Patient was given analgesia and 80. We discharged with a Tylenol 3 starter pack. Advised about the possible side effects of the medication. Advised to follow-up with an coverage specialist. Advised to keep the leg elevated, apply ice compresses and alternate between Tylenol and Motrin for pain control. Patient given a prescription for crutches. Return parameters were thoroughly discussed with patient was understanding and agreeable. Case discussed with physician. Disposition Clinical Impression: Gastrocnemius muscle tear Disposition: HOME SELF-CARE Condition: Stable Instructions (If sedation given, give patient instructions): Tendon Rupture ( ED) Additional Instructions: Follow-up with coverage specialist. Take prescribed medication as directed. Return to emergency department if symptoms worsen. Apply ice compress an alternate between Tylenol and Motrin for pain control. Is patient prescribed a controlled substance at d/c from ED?: No Referrals: Juan Underwood DO [Primary Care Provider] - 1-2 days Time of Disposition: 19:44
[2020-02-02 19:57] VITALS: BP 138/84; PULSE 84; TEMP 98
== END 2020-02-02 19:52 | disposition home or self-care (01) ==
LOC: EC 18:05
DX: S86.811A Strain of other muscle(s) and tendon(s) at lower leg level, right leg, initial encounter (principal); G40.909 Epilepsy, unspecified, not intractable, without status epilepticus; F17.200 Nicotine dependence, unspecified, uncomplicated; Z88.0 Allergy status to penicillin; X50.0XXA Overexertion from strenuous movement or load, initial encounter; Y93.39 Activity, other involving climbing, rappelling and jumping off
CPT/HCPCS: 73590; 99283; 96372; 29515; J2270

== ENCOUNTER → 2020-10-27 | Outpatient (CLI) | payer BC ==
--- NOTE | 2020-10-27 16:59 | XR ---
Right clavicle HISTORY: Pain, injury 2 views the right clavicle Arthropathy is present at the acromioclavicular joint. No fracture or dislocation is evident. Alignme nt is maintained. Some sclerotic density present in the humeral head. Right lung apex as visualized i s normal. IMPRESSION: Acromioclavicular joint arthropathy.
--- NOTE | 2020-10-27 17:02 | XR ---
Right shoulder HISTORY: Injury, pain 3 views the right shoulder Bone mineralization, joint spaces and alignment are are markable for joint space loss, remodeling at the glenohumeral joint, arthropathy and acromion clavicular joint. Sclerosis in the right humeral hea d may represent bone islands. Right lung apex as visualized is normal. No fracture or dislocation. IMPRESSION: Osteoarthritis.
== END | disposition home or self-care (01) ==
LOC: RADXRMAIN 15:33
PROVIDERS: ATTEND Family Medicine
DX: M19.011 Primary osteoarthritis, right shoulder (principal)

== ENCOUNTER → 2020-11-05 | Outpatient (CLI) | payer BC ==
--- NOTE | 2020-11-07 10:00 | ECHOF ---
Referral Reason:R01.1 MEASUREMENTS -------- HEIGHT: 170.2 cm WEIGHT: 75.3 kg BP: IVSd: 1.1 cm (0.6 - 1.1) LVIDd: 4.8 cm (3.9 - 5.3) LVPWd: 1.0 cm (0.6 - 1.1) IVSs: 1.3 cm LVIDs: 3.4 cm LVPWs: 1.4 cm LA Diam: 3.6 cm (2.7 - 3.8) LAESV Index (A-L): 27.38 ml/m Ao Diam: 3.1 cm (2.0 - 3.7) AV Cusp: 1.6 cm (1.5 - 2.6) MV EXCURSION: 22.451 mm (> 18.000) MV EF SLOPE: 151 mm/s (70 - 150) EPSS: 0.2 cm MV E Rodri: 0.91 m/s MV DecT: 202 ms MV A Rodri: 0.88 m/s MV E/A Ratio: 1.02 AV maxP.78 mmHg AV meanP.12 mmHg FINDINGS -------- Sinus rhythm. This was a technically good study. LV size, wall thickness and systolic function are normal, with an EF greater than 55%. The left leatha tricular size is normal. The right ventricle is normal in size. Normal LA size by volume 22+/-6 ml/m2. The right atrial size is normal. There is mild aortic stenosis present. Peak/mean gradient across the Aortic Valve is 26.78mmHg / 14 .12mmHg. Functionally bicuspid aortic valve. Mild mitral regurgitation is present. Mild tricuspid regurgitation present. Right ventricular systolic pressure is normal at < 35 mmHg. There is no pulmonic regurgitation present. The aortic root size is normal. There is no pericardial effusion. CONCLUSIONS -------- 1. LV size, wall thickness and systolic function are normal, with an EF greater than 55%. 2. The left ventricular size is normal. 3. The right ventricle is normal in size. 4. Normal LA size by volume 22+/-6 ml/m2. 5. The right atrial size is normal. 6. There is mild aortic stenosis present. 7. Peak/mean gradient across the Aortic Valve is 26.78mmHg / 14.12mmHg. 8. Functionally bicuspid aortic valve. 9. Mild mitral regurgitation is present. 10. Mild tricuspid regurgitation present. 11. There is no pulmonic regurgitation present. 12. The aortic root size is normal. 13. There is no pericardial effusion. MUSIC EDUCATION ADJUNCT PROFESSOR: Inna Puckett RDCS
== END | disposition home or self-care (01) ==
LOC: RADECHMAIN 12:09
PROVIDERS: ATTEND Family Medicine
DX: I08.1 Rheumatic disorders of both mitral and tricuspid valves (principal)
CPT/HCPCS: 93306

== ENCOUNTER → 2021-11-18 | Outpatient (CLI) | payer BC ==
--- NOTE | 2021-11-18 10:30 | P.STRESS ---
- Stress Test Note Stress Test Results/Findings: Exam Performed: stress test Exam Date: 11/18/21 Reason for Exam: CARDIAC MURMUR Height: 5 ft 9 in Weight: 78.471 kg Protocol: MITESH Stage: 3 Duration of Exercise: 7:07 Resting Heart Rate: 72 Resting Blood Pressure: 127/78 Maximum Achieved Heart Rate: 128 Maximum Achieved Blood Pressure: 195/81 85% PMHR: 145 100% PMHR: 171 METS: 8.9 Technologist Comment: Stress Test Results/Findings: This is a 51-year-old gentleman with history of hypercholesterolemia, smoking and family history of ischemic heart disease, sent here for cardiac evaluation. Stress data: Baseline EKG showed sinus rhythm with normal CA interval and QRS duration. Blood pressure at rest is 127/78 with pulse rate of 72. Patient walked on the Mitesh protocol for 7 minutes achieving a maximal heart rate of 128 with a blood pressure 195/81. EKGs taken during exercise showed about half to [address] segments in inferolateral leads. These changes persisted for about 67 minutes. In the post x-rays.. Not associated with any chest pain. Final impression: #1. Positive stress test. Based on EKG changes without any chest pain. #2. Hypertensive response to exercise #3. Patient did not express any chest pain #4. No arrhythmias are detected. #5. Patient achieved only 75% of the predicted heart rate, because of the hip pain. #6. 4. Pharmacological stress test could be considered for further evaluation
--- NOTE | 2021-11-24 11:16 | EST ---
Stress Test Results/Findings: Exam Performed: stress test Exam Date: 11/18/21 Reason for Exam: CARDIAC MURMUR Height: 5 ft 9 in Weight: 78.471 kg Protocol: MITESH Stage: 3 Duration of Exercise: 7:07 Resting Heart Rate: 72 Resting Blood Pressure: 127/78 Maximum Achieved Heart Rate: 128 Maximum Achieved Blood Pressure: 195/81 85% PMHR: 145 100% PMHR: 171 METS: 8.9 Technologist Comment: Stress Test Results/Findings: This is a 51-year-old gentleman with history of hypercholesterolemia, smoking and family history of ischemic heart disease, sent here for cardiac evaluation. Stress data: Baseline EKG showed sinus rhythm with normal NM interval and QRS duration. Blood pressure at rest is 127/78 with pulse rate of 72. Patient walked on the Mitesh protocol for 7 minutes achieving a maximal heart rate of 128 with a blood pressure 195/81. EKGs taken during exercise showed about half to [address] segments in inferolateral leads. These changes persisted for about 67 minutes. In the post x-rays.. Not associated with any chest pain. Final impression: #1. Positive stress test. Based on EKG changes without any chest pain. #2. Hypertensive response to exercise #3. Patient did not express any chest pain #4. No arrhythmias are detected. #5. Patient achieved only 75% of the predicted heart rate, because of the hip pain. #6. 4. Pharmacological stress test could be considered for further evaluation [facility]
== END | disposition home or self-care (01) ==
LOC: RADNMMAIN 08:47
PROVIDERS: ATTEND Family Medicine
DX: I10 Essential (primary) hypertension (principal); R01.1 Cardiac murmur, unspecified
CPT/HCPCS: 93017

== ENCOUNTER 2021-11-24 08:16 | Day surgery (SDC) | payer BC ==
[2021-11-22 11:42] VITALS: BMI 26.2
[~2021-11-24 08:16] MED LIST: LACTATED RINGERS 1,000 ML IV SCH
--- NOTE | 2021-11-24 08:34 | P.GSHP ---
History of Present Illness H&P Date: 11/24/21 CHIEF COMPLAINT: Colon screen HISTORY OF PRESENT ILLNESS: The patient is a 51-year-old male who presents for colon screen. Lower endoscopy was offered for further evaluation and management. PAST MEDICAL HISTORY: Please see list. PAST SURGICAL HISTORY: Please see list. MEDICATIONS: Please see list. ALLERGIES: Please see list. SOCIAL HISTORY: No illicit drug use FAMILY HISTORY: No reports of Crohn disease or ulcerative colitis. REVIEW OF ORGAN SYSTEMS: CONSTITUTIONAL: No reports of fevers or chills. PHYSICAL EXAM: VITAL SIGNS: Stable GENERAL: Well-developed pleasant in no acute distress. HEENT: No scleral icterus. Extraocular movements grossly intact. Moist buccal mucosa. NECK: Supple without lymphadenopathy. CHEST: Unlabored respirations. Equal bilateral excursions. CARDIOVASCULAR: Regular rate and rhythm. Distal 2+ pulses. ABDOMEN: Soft, nontender, nondistended. MUSCULOSKELETAL: No clubbing, cyanosis, or edema. ASSESSMENT: 1. Colon screen. PLAN: 1. Recommend proceeding with a lower endoscopy Past Medical History Past Medical History: Hyperlipidemia, Hypertension, Seizure Disorder History of Any Multi-Drug Resistant Organisms: None Reported Past Surgical History: No Surgical Hx Reported Additional Past Anesthesia/Blood Transfusion Reaction / Comment(s): no prev anesth hx Past Psychological History: No Psychological Hx Reported Smoking Status: Current every day smoker Past Alcohol Use History: None Reported Past Drug Use History: Marijuana Additional Drug Use History / Comment(s): edibles Medications and Allergies Home Medications Medication Instructions Recorded Confirmed Type carBAMazepine [TEGretol] 400 mg PO QAM 05/15/17 11/22/21 History Lovastatin [Mevacor] 10 mg PO HS 11/22/21 11/22/21 History Metoprolol Tartrate [Lopressor] 25 mg PO BID 11/22/21 11/22/21 History Allergies Allergy/AdvReac Type Severity Reaction Status Date / Time Penicillins Allergy Swelling Verified 11/22/21 11:35
[2021-11-24 08:40] VITALS: TEMP 97.3
[2021-11-24] MEDS ORDERED: PROPOFOL 10 MG/ML 20 ML VIAL IV ONE (08:47)
[2021-11-24 09:35] VITALS: PULSE 56
[2021-11-24 09:52] VITALS: BP 144/84; RESP 16
--- NOTE | 2021-11-24 10:24 | P.PCN ---
Date of Procedure: 11/24/21 Description of Procedure: PREOPERATIVE DIAGNOSIS: Abnormal stool test, cologaurd POSTOPERATIVE DIAGNOSIS: Hepatic flexure adenoma Transverse colon adenoma Splenic flexure adenoma Descending colon adenoma Sigmoid colon adenoma Sigmoid diverticulosis OPERATION: Colonoscopy to the ileocecal valve and appendiceal orifice, cecum Colonoscopy with hot snare polypectomy SURGEON: Jesika Tracy MD. ANESTHESIA: MAC. INDICATIONS: The patient is an 51-year-old male who presents for his first colonoscopy. He had an abnormal stool study, Cologaurd. Benefits and risks were described and informed consent was obtained. DESCRIPTION OF PROCEDURE: The patient had undergone Sutab prep. The patient had been brought into the operating room and laid in the left lateral decubitus position. After adequate intravenous sedation, the rectum was examined with 2% lidocaine jelly. The prostate was unremarkable. No external hemorrhoids were encountered. The rectal tone was within normal limits. No lesions were palpated in the rectal vault. An Olympus colonoscope was advanced until the cecum, ileocecal valve and appendiceal orifice were clearly viewed. The prep was excellent. Sigmoid diverticulosis was encountered. Colonic polyps were found and removed. No evidence of focal colitis was found. Retroflexion of the scope demonstrated grade 2 internal hemorrhoids without active bleeding or inflammation. The colon was desufflated. The patient had tolerated the procedure well. Withdrawal time was over 6 minutes. FINDINGS: Aronchick preparation quality scale 1 (1-5) Internal hemorrhoids, grade 2 No external hemorrhoids No arteriovenous malformations. Sigmoid diverticulosis Removal of 8 polyps: - Snare polypectomy 25 cm from the anal verge, 9 mm tubulovillous adenoma polyp, sigmoid colon - Snare polypectomy 30 cm from the anal verge, 8 mm flat villous adenoma polyp, sigmoid colon - Snare polypectomy descending colon, 8 mm flat villous adenoma polyp. - Snare polypectomy mid transverse colon, 12 mm flat villous adenoma polyp -- multiple snares attempted for resection - Snare polypectomy splenic flexure, 6 mm flat villous adenoma polyp. - Snare polypectomy hepatic flexure 3, 4 to 10 mm flat villous adenoma polyp. No focal colitis. RECOMMENDATIONS: He has multiple high-risk colon polyps including a large adenoma with attempted multiple snares, repeat colonoscopy in 6 months, May 2022 Plan - Discharge Summary Discharge Rx Participant: No New Discharge Prescriptions: Continue carBAMazepine [TEGretol] 400 mg PO QAM Metoprolol Tartrate [Lopressor] 25 mg PO BID Lovastatin [Mevacor] 10 mg PO HS Discharge Medication List carBAMazepine [TEGretol] 400 mg PO QAM 05/15/17 [History] Lovastatin [Mevacor] 10 mg PO HS 11/22/21 [History] Metoprolol Tartrate [Lopressor] 25 mg PO BID 11/22/21 [History] Follow up Appointment(s)/Referral(s): Jesika Tracy MD [STAFF PHYSICIAN] - 12/01/21 Patient Instructions/Handouts: *Surgery [facility] - (Anesthesia) Endoscopy Discharge Instructions, Diverticulosis (ED), Colorectal Polyps (GEN), Diverticulosis Diet (GEN), Colonoscopy (DC) Activity/Diet/Wound Care/Special Instructions: Repeat colonoscopy in 6 months, May 2022 Discharge Disposition: HOME SELF-CARE
== END 2021-11-24 11:06 | disposition home or self-care (01) ==
LOC: ORWHC2ENDO 08:16
PROVIDERS: ATTEND Surgery Plastic and Reconstructive Surgery
DX: D12.3 Benign neoplasm of transverse colon (principal); D12.5 Benign neoplasm of sigmoid colon; K57.30 Diverticulosis of large intestine without perforation or abscess without bleeding; K64.1 Second degree hemorrhoids; E78.5 Hyperlipidemia, unspecified; I10 Essential (primary) hypertension; G40.909 Epilepsy, unspecified, not intractable, without status epilepticus; F17.210 Nicotine dependence, cigarettes, uncomplicated; Z79.899 Other long term (current) drug therapy; Z88.0 Allergy status to penicillin
CPT/HCPCS: 88305; 45385; J2704

== ENCOUNTER → 2022-03-22 | Outpatient (CLI) | payer BC ==
[2022-03-22 18:17] LABS: Basophils # (A) 0.06 X 10*3/uL (0.00-0.10); Basophils % (A) 0.8 %; Eosinophils # (A) 0.23 X 10*3/uL (0.04-0.35); HCT 41.7 % (39.6-50.0); Immature Grans, Automated 0.4 %; Lymphocytes # (A) 2.74 X 10*3/uL (0.90-5.00); Lymphocytes % (A) 35.6 %; MCHC 33.6 g/dL (32.0-37.0); MCV 92.3 fL (80.0-97.0); Mean Platelet Volume 10.8 fL (9.5-12.2); Monocytes # (A) 0.73 X 10*3/uL (0.20-1.00); Monocytes % (A) 9.5 %; NRBC Per 100 WBC 0 /100 WBCS (0.0-0.0); Neutrophils # (A) 3.91 X 10*3/uL (1.80-7.70); Neutrophils % (A) 50.7 %; Platelet Count 299 X 10*3/uL (140-440); RBC 4.52 X 10*6/uL (4.40-5.60); RDW 12.8 % (11.5-14.5)
[2022-03-22 18:24] LABS: Anion Gap 10.7 mmol/L (10.00-18.00); Carbon Dioxide 24.9 mmol/L (20.0-27.5); Potassium 4.6 mmol/L (3.5-5.5)
== END | disposition home or self-care (01) ==
LOC: LABPAT 13:01
PROVIDERS: ATTEND Orthopaedic Surgery Hand Surgery
DX: Z01.812 Encounter for preprocedural laboratory examination (principal); M65.4 Radial styloid tenosynovitis [de Quervain]
CPT/HCPCS: 80051; 85025

== ENCOUNTER 2022-04-05 07:18 | Day surgery (SDC) | payer BC ==
--- NOTE | 2022-04-03 09:13 | P.HPOR ---
History of Present Illness H&P Date: 04/03/22 Chief Complaint: Left DeQuervains tenosynovitis Subjective: This is a 51 year old male that presents today for initial evaluation regarding a 1 year history of progressively worsening radial sided wrist pain. He states he was seen at [facility] and recieved a steroid injection which helped his symptoms but they have returned. He has been with rotating the wrist and and radial deviation of the wrist. He denies any paresthesias. Physical Examination: LUE: AIN/PIN/Radial/Ulnar/Median motor intact. Radial/Ulnar/Median SILT. 2+/4 Radial/Ulnar pulses palpated. 5/5 APB, 5/5 FDI. Positive Finkelsteins, negative CMC grind, negative Durkan's compression. Impression: 1.) Left DeQuervain Tenosynovitis Plan: Diagnosis and treatment options were discussed with the patient. He would like to go forward with first dorsal compartment release after having failed conservative treatment. Risks and benefits of surgery including bleeding, infection, damage to surrounding tissue, need for further surgery, residual numbness were discussed and the patient wished to go forward with surgery. I anticipate 2-3 weeks off of work post operatively if needed. -Juan Carlos San DO Orthopedic Hand/Upper Extremity Surgeon Past Medical History Past Medical History: Hyperlipidemia, Hypertension, Seizure Disorder History of Any Multi-Drug Resistant Organisms: None Reported Past Surgical History: No Surgical Hx Reported Past Psychological History: No Psychological Hx Reported Past Alcohol Use History: None Reported Past Drug Use History: Marijuana Medications and Allergies Home Medications Medication Instructions Recorded Confirmed Type carBAMazepine [TEGretol] 400 mg PO QAM 05/15/17 11/22/21 History Lovastatin [Mevacor] 10 mg PO HS 11/22/21 11/22/21 History Metoprolol Tartrate [Lopressor] 25 mg PO BID 11/22/21 11/24/21 History Allergies Allergy/AdvReac Type Severity Reaction Status Date / Time Penicillins Allergy Swelling Verified 11/22/21 11:35 Physical Examination Osteopathic Statement: *. No significant issues noted on an osteopathic structural exam other than those noted in the History and Physical/Consult.
[2022-04-04 10:30] VITALS: BMI 26.2
[~2022-04-05 07:18] MED LIST changes: +DEXAMETHASONE SOD PHOSPHATE 4 MG/ML 1 ML VIAL IV ONE; +ONDANSETRON 4 MG/2 ML VIAL IVP ONE; +Pre Op ABX Message 1 EACH MISC MISCELLANE ONE; +fentaNYL (PF) 50 MCG/ML 2 ML AMP IV PRN
[2022-04-05 07:53] VITALS: TEMP 97.6
[2022-04-05] MEDS ORDERED: LIDOCAINE 1% (10MG/ML) FOR IV START INTRADERMA ONE (08:03)
[2022-04-05] MEDS ORDERED: LIDOCAINE 1% INJ 10MG/ML (20 ML MDV) SQ ONE ×2 (08:17→08:33)
[2022-04-05] MEDS ORDERED: BUPIVACAINE (PF) 0.5% 30 ML VIAL SQ ONE ×2 (08:17→08:33)
[2022-04-05] MEDS ORDERED: fentaNYL (PF) 50 MCG/ML 2 ML AMP ONE (08:26)
[2022-04-05] MEDS ORDERED: MIDAZOLAM 2 MG/2 ML VIAL ONE (08:26)
[2022-04-05] MEDS ORDERED: LIDOCAINE 2% INJ 20 MG/ML (2 ML VIAL) ONE (08:26)
[2022-04-05] MEDS ORDERED: PROPOFOL 10 MG/ML 20 ML VIAL IV ONE (08:26)
--- NOTE | 2022-04-05 09:02 | P.OP ---
Date of Procedure: 04/05/22 Preoperative Diagnosis: 1.) Left DeQuervain's Tenosynovitis Postoperative Diagnosis: 1.) Left DeQuervain's Tenosynovitis Procedure(s) Performed: 1.) Left first dorsal compartment release Anesthesia: MAC Surgeon: Juan Carlos San Preschool Adviser #1: Carlos Dejesus Estimated Blood Loss (ml): 0 Pathology: none sent Condition: stable Disposition: PACU Description of Procedure: This is a 51 year old male who presents today for a left first dorsal compartment release after having failed conservative treatment. Risks and benefits of surgery were discussed with the patient including bleeding, damage to surrounding tissue, infection, need for further surgery as well as risks of anesthesia including pulmonary embolism and even and the patient wished to proceed with surgical intervention. The patients was seen in the pre-operative area by myself. Consent and H&P were completed and updated. The correct extremity was marked in the pre-operative area by myself and all other questions were answered. Operative Narrative: The patient was brought to the operating room by the department of anesthesia. They remained on the portable stretcher and a rolling hand table was brought to the side of the operative extremity. The patient was then drifted off to sleep by the department of anesthesia. A nonsterile tourniquet was then applied to the operative extremity and the left upper extremity was then prepped and draped in normal sterile fashion. Pre-operative time out was performed indicating the correct patient, procedure and laterality. All in the room agreed. MAC anesthesia was utilized and a 50:50 mixture of 1% Lidocaine and 0.5% bupivacaine was injected into the subcutaneous tissues of the radial wrist skin, 4ccs total. Pre-operative antibiotics were given prior to skin incision. The operative extremity was the exsanguinated with an esmarch bandage and the tourniquet was inflated to 250mmHg. 15 blade scalpel was used to make a horizontal skin incision centered over the first dorsal compartment of the left wrist. Blunt dissection was taken down to the proximal edge of the first dorsal compartment while taking care to identify and protect branches of the superficial radial sensory nerve. The first dorsal compartment was released in its entirety from proximal to distal. APL and EPB tendons were identified and there was found to be a second compartment of the EPB tendon which was release in it's entirety. Skin closure was performed with 4-0 Monocryl suture, Mastisol and steri strips. Sterile soft dressing was applied consisting of 4x4's cast padding and an nina wrap. The patient was then woken by the department of anesthesia and transferred to PACU in stable condition. The patient was then woken by the department of anesthesia and transferred to PACU in stable condition. Juan Carlos San D.O. Orthopedic Hand/Upper Extremity Surgeon
[2022-04-05 09:29] VITALS: BP 124/77; PULSE 63; RESP 16
== END 2022-04-05 09:30 | disposition home or self-care (01) ==
LOC: OR 07:18
PROVIDERS: ATTEND Orthopaedic Surgery Hand Surgery
DX: M65.4 Radial styloid tenosynovitis [de Quervain] (principal); E78.5 Hyperlipidemia, unspecified; I10 Essential (primary) hypertension; G40.909 Epilepsy, unspecified, not intractable, without status epilepticus; Z79.899 Other long term (current) drug therapy; Z88.0 Allergy status to penicillin; F17.200 Nicotine dependence, unspecified, uncomplicated
CPT/HCPCS: 25000; J2250; J1100; J2405; J2001 ×2; J3010; J2704

== ENCOUNTER → 2022-06-10 | Outpatient (CLI) | payer BC ==
--- NOTE | 2022-06-11 08:05 | XR ---
EXAMINATION TYPE: XR shoulder complete RT DATE OF EXAM: 06/10/2022 CLINICAL HISTORY: pain TECHNIQUE: Three views of the right shoulder are obtained. COMPARISON: 10/27/2020 FINDINGS: There is no acute fracture/dislocation evident. Mild AC joint arthropathy. The visualized ribs are intact and unremarkable. Bone islands humeral head redemonstrated. Degenerative spurring are noted about the humeral head with mild glenohumeral narrowing. IMPRESSION: 1. There is no acute fracture or dislocation. ICD 10 NO FRACTURE, INITIAL EVALUATION
== END | disposition home or self-care (01) ==
LOC: RADXRMAIN 13:33
PROVIDERS: ATTEND Nurse Practitioner Family
DX: M25.511 Pain in right shoulder (principal)

== ENCOUNTER → 2023-03-08 | Outpatient (CLI) | payer BC ==
--- NOTE | 2023-03-09 08:45 | CT ---
CT CHEST FOR PULMONARY EMBOLISM. EXAMINATION TYPE: CT angio chest DATE OF EXAM: 03/08/2023 INDICATION: Thoracic aneurysm CT DLP: 3 4.90 mGycm, Automated exposure control for dose reduction was used. CONTRAST: Patient injected with 100 mL of Isovue 370. COMPARISON: No pertinent exams at this location TECHNIQUE: CT of the chest is performed on a spiral scan at 2 mm thick sections. Study is performed with intravenous contrast timed for evaluation of the aorta. This will limit additional portions of the evaluation. 3-D MIP images reconstructed by the technologist are reviewed on the computer in the coronal and sagittal planes. FINDINGS: Portions of the thyroid visualized normal. No mediastinal or hilar adenopathy enlarged by CT criteria is evident. There is a 3 vessel arch. The ascending aorta diameter at the level of the main pulmonary artery is 3 .1 cm. The main pulmonary artery diameter at the bifurcation is 2.0 cm. Aorta at the aortic root is 2.5 cm. Transverse dimension of the aortic arch is 2.3 cm. Aorta at the diaphragm is 2.2 cm. No aneur ysm or aortic dissection. There is a 0.5 cm nodule in the peripheral left midlung. Series [address] section through the upper abdomen are unremarkable. IMPRESSIONS: 1. No aortic aneurysm. 2. 0.5 cm left lung nodule. Follow-up CT chest in 6 months is recommended. This should be confirmed a s stable over the course of 2 years.
== END | disposition home or self-care (01) ==
LOC: RADCTMAIN 16:09
PROVIDERS: ATTEND Internal Medicine Interventional Cardiology
DX: I71.20 Thoracic aortic aneurysm, without rupture, unspecified (principal); R91.1 Solitary pulmonary nodule
CPT/HCPCS: 71275; Q9967

== ENCOUNTER → 2023-04-14 | Outpatient (CLI) | payer BC ==
[2023-04-14 13:07] LABS: BUN/Creat Ratio 15.27 Ratio (12.00-20.00); Blood Urea Nitrogen 16.8 mg/dL (9.0-27.0); Chloride 102 mmol/L (96-109); Glucose 94 mg/dL (70-110); LDL Cholesterol,Calculated 169.2 mg/dL (0.0-131.0); Sodium 138 mmol/L (135-145)
[2023-04-14 13:08] LABS: ALT 43 U/L (10-49); AST 24 U/L (14-35); Albumin 4.9 d/dL (3.8-4.9); Albumin/Globulin Ratio 2.04 Ratio (1.60-3.17); Alkaline Phosphatase 114 U/L (41-126); Calcium 9.8 mg/dL (8.7-10.3); Carbon Dioxide 25.7 mmol/L (21.6-31.8); Globulin 2.4 d/dL (1.6-3.3); T4, Free (Free Thyroxine) 0.89 ng/dL (0.80-1.80); Total Bilirubin 0.3 mg/dL (0.3-1.2); Total Protein 7.3 d/dL (6.2-8.2)
[2023-04-14 13:30] LABS: Basophils # (A) 0.07 X 10*3/uL (0.00-0.10); Basophils % (A) 0.9 %; Eosinophils # (A) 0.22 X 10*3/uL (0.04-0.35); Eosinophils % (A) 2.8 %; HCT 44.2 % (39.6-50.0); HGB 14.6 d/dL (13.0-17.0); Lymphocytes % (A) 33.6 %; MCH 31.9 pg (27.0-32.0); MCV 96.7 FL (80.0-97.0); Mean Platelet Volume 11.3 FL (9.5-12.2); Monocytes # (A) 0.63 X 10*3/uL (0.20-1.00); Monocytes % (A) 8.1 %; NRBC Per 100 WBC 0 X 10*3/uL (0.00-0.01); Neutrophils % (A) 54.3 %; Platelet Count 253 X 10*3/uL (140-440); RBC 4.57 X 10*6/uL (4.40-5.60); RDW 12.9 % (11.5-14.5); WBC 7.74 X 10*3/uL (4.50-10.00)
== END | disposition home or self-care (01) ==
LOC: LABWHC1 08:26
PROVIDERS: ATTEND Internal Medicine Interventional Cardiology
DX: Z12.5 Encounter for screening for malignant neoplasm of prostate (principal); E78.2 Mixed hyperlipidemia
CPT/HCPCS: 36415; 80053; 80061; 84153; 84439; 84443; 85025

== ENCOUNTER 2023-04-17 06:13 | Day surgery (SDC) | payer BC ==
[2023-04-17] MEDS ORDERED: METOPROLOL TARTRATE 25 MG TAB PO STA (07:04)
[2023-04-17] MEDS ORDERED: ALPRAZolam 0.25 MG TAB PO PRN (07:04)
[2023-04-17] MEDS ORDERED: NITROGLYCERIN SL TABS 0.4 MG TAB SUBLINGUAL PRN ×2 (07:04→08:30)
[2023-04-17] MEDS ORDERED: ASPIRIN 325 MG TAB PO STA (07:04)
[2023-04-17] MEDS ORDERED: SODIUM CHLORIDE 0.9% 1,000 ML in EMPTY BAG 1 BAG IV SCH ×2 (07:04→08:30)
[2023-04-17] MEDS ORDERED: ALPRAZolam 0.5 MG TAB PO PRN (07:04)
[2023-04-17] MEDS ORDERED: VERAPAMIL 2.5 MG/ML 2 ML AMP ONE (07:18)
[2023-04-17] MEDS ORDERED: HEPARIN SODIUM 1,000 UN/ML (10ML VL) ONE (07:31)
[2023-04-17] MEDS ORDERED: fentaNYL (PF) 50 MCG/ML 2 ML AMP ONE (07:31)
[2023-04-17] MEDS ORDERED: fentaNYL (PF) 50 MCG/ML 2 ML AMP IVP ONE (07:36)
[2023-04-17] MEDS ORDERED: LIDOCAINE 1% INJ 10MG/ML (5 ML VIAL-PF) SQ ONE ×2 (07:38→07:39)
[2023-04-17] MEDS ORDERED: VERAPAMIL SYRINGE (5 MG/10 ML) INTRAARTER ONE (07:40)
[2023-04-17] MEDS: HEPARIN SODIUM 1,000 UN/ML (10ML VL) IV ONE ×3 (07:46→08:01)
[2023-04-17] MEDS ORDERED: MIDAZOLAM 2 MG/2 ML VIAL IVP ONE (07:47)
[2023-04-17] MEDS ORDERED: CLOPIDOGREL 75 MG TAB ONE (07:51)
[2023-04-17] MEDS ORDERED: CLOPIDOGREL 75 MG TAB PO ONE (07:54)
[2023-04-17] MEDS ORDERED: IOPAMIDOL-370 100ML BTL INJ ONE (08:15)
[2023-04-17] MEDS ORDERED: ATROPINE SULFATE 0.1 MG/ML 10ML SYRINGE IV PRN (08:30)
[2023-04-17] MEDS ORDERED: MAG HYDROX/AL HYDROX/SIMETH 30 ML CUP PO PRN (08:30)
[2023-04-17] MEDS ORDERED: ZOLPIDEM 5 MG TAB PO PRN (08:30)
[2023-04-17] MEDS ORDERED: RX INFO: IV CONTRAST WAS GIVEN 1 EACH MISC MISCELLANE PRN (08:30)
--- NOTE | 2023-04-17 08:40 | P.CARDCATH ---
Date of Procedure: 04/17/23 Description of Procedure: Cardiac Catheterization: The patient is a 52-year-old male with a known history of bicuspid aortic valve, hyperlipidemia and chronic tobacco use who had symptoms of dyspnea on exertion and an abnormal MPI. Recommendations were made regarding cardiac catheterization, the risks and the complications were discussed with the patient who is in full understanding and agreement. 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 Using Xylocaine Anesthesia and Seldinger technique, a 6-[place] sheath was introduced in the right radial artery . Subsequently, selective coronary angiography was performed using a 5-[place] 3.5 bend Danielito catheter. Multiple views of the coronary artery including hemiaxial views were obtained. The 5-[place] pigtail catheter was used to cross the aortic valve and LVEDP was calculated. PCI: After removing the catheters a 6-[place] AL 0.75 guiding catheter was introduced and after cannulating the left main a 0.014 BMW J-wire was positioned in the distal RCA subsequently a 3.0 x 12 mm Treck was advanced and one inflation at 8 jackeline was done, after removing the balloon a [employer] intravascular ultrasound catheter was advanced and imaging were obtained. After removing the catheter a 4.0 x 18 mm Xience Jeaneth point stent was deployed at 14 jackeline. After removing the wire images were obtained and revealed stable successful stenting. Following that, catheter and sheath were removed. Hemostasis was obtained with deployment of TR band . There was no immediate complication. Patient was returned to room in stable condition. Of note, the patient received a total of 7500 units of intravenous heparin as well as intra-arterial verapamil. His ACT was monitored. He received an oral loading dose of clopidogrel. He had chest discomfort and EKG changes with the inflations that resolved at the end of the procedure. Findings: Left main: This is a large-size vessel, bifurcating into LAD, left main has no obstructive disease LAD: This is a large-size vessel, reaching to the apex, giving rise to a large diagonal branch proximally. The LAD has mild to mid disease of 10-20% proximally with no high-grade stenosis Left circumflex: This is a small nondominant vessel, giving rise to 2 obtuse marginal branch. After the takeoff of the first obtuse marginal branch there is an 80-90% stenosis the second obtuse marginal branch is occluded slow retrograde flow. It is small in caliber. RCA: This is a large dominant vessel, bifurcating distally to PDA and PLV. The proximal RCA has a tube or lesion with stenosis up to 80-90%. The mid RCA has a 40-50% stenosis and there is another plaque of 40-50% in the distal RCA. Left Ventriculogram: Not performed Hemodynamics: There was 10 mm gradient across the aortic valve. The aortic valv e is calcified , LVEDP was 18-20 mmHg Conclusion: 1. Severe stenosis in the proximal RCA 2. Chronically occluded second small OM with severe stenosis in the proximal left circumflex, small in caliber 3. Mild disease in the LAD 4. Successful stenting of the proximal RCA with reduction of stenosis from 85% to 0% with intravascular ultrasound imaging Recommendations: The patient will continue on aspirin and clopidogrel for 6 months without any interruption in addition to aggressive coronary risks modification and smoking cessation. Depending on his symptoms he will be monitored regarding the need to undergo revascularization of the left circumflex. The findings and the recommendations were discussed with the patient and the family and they were in full understanding and agreement. Duration of sedation is 38 minutes.
[2023-04-17] MEDS ORDERED: carBAMazepine 200 MG TAB PO SCH (09:00)
[2023-04-17] MEDS ORDERED: METOPROLOL TARTRATE 25 MG TAB PO SCH (09:00)
[2023-04-17] MEDS ORDERED: ASPIRIN 81 MG PO SCH (09:00)
[2023-04-17 11:34] VITALS: RESP 16
[2023-04-17 18:35] VITALS: PULSE 61
[2023-04-17 18:42] VITALS: BP 130/74
[2023-04-17] MEDS ORDERED: ATORVASTATIN 20 MG TAB PO SCH (21:00)
[2023-04-18] MEDS ORDERED: CLOPIDOGREL 75 MG TAB PO SCH (09:00)
== END 2023-04-17 13:34 | disposition home or self-care (01) ==
LOC: CATHCVL 06:13
PROVIDERS: ATTEND Internal Medicine Interventional Cardiology
DX: I25.10 Atherosclerotic heart disease of native coronary artery without angina pectoris (principal); E78.5 Hyperlipidemia, unspecified; I10 Essential (primary) hypertension; F17.210 Nicotine dependence, cigarettes, uncomplicated; Z82.49 Family history of ischemic heart disease and other diseases of the circulatory system; Z79.899 Other long term (current) drug therapy
CPT/HCPCS: 92978; 93458; C9600; C1769 ×3; C1887; C1894; C1725; C1753; C1874; J2250; J2001; J3010; J1644; Q9967

== ENCOUNTER → 2023-04-18 | Outpatient (CLI) | payer BC | END | disposition home or self-care (01) | LOC: LABWHC1 10:53 | PROVIDERS: ATTEND Internal Medicine Interventional Cardiology | DX: I25.10 Atherosclerotic heart disease of native coronary artery without angina pectoris (principal); Z95.5 Presence of coronary angioplasty implant and graft | CPT/HCPCS: 36415; 82565 ==

== ENCOUNTER → 2023-10-25 | Outpatient (CLI) | payer BC ==
--- NOTE | 2023-10-26 06:24 | CTL ---
EXAMINATION TYPE: CT Low Dose Lung DATE OF EXAM ORDERED: 10/25/2023 HISTORY: 53M. Lung cancer screening CT DLP: [address] CTDI: 2.18 mGy SCREENING VISIT: Yes COMPARISON: CT PE Chest 03/08/2023 TECHNIQUE: Low dose computed tomography scan was Performed through the chest at 1 mm thick sections a nd reconstructed images in multiple planes at 1 mm and 5 mm thick sections. Automated exposure contro l for dose reduction was used. CT DIAGNOSTIC QUALITY: Satisfactory FINDINGS: LUNG NODULES: Stable 5 mm solid nodule on CT image 29/75. This nodule is the left upper lobe, laterally. Stable 3 mm solid nodule on CT image 39/75. This nodule is the right middle lobe, anterior. LUNGS: COPD: Severity: None Fibrosis: Severity: None Lymph nodes: None Other findings: None RIGHT PLEURAL SPACE: Effusion: None Calcification: None Thickening: None Pneumothorax: None LEFT PLEURAL SPACE: Effusion: None Calcification: None Thickening: None Pneumothorax: None HEART: Heart Size: Normal Coronary Calcification: RCA stent noted. Prominent aortic valve calcifications noted. Pericardial Effusion: None OTHER FINDINGS: Upper abdomen: None Bony thorax: None Supraclavicular region: None Other: None IMPRESSION: LUNG-RADS Category 2/S. CT LUNG RAD AND CT CHEST RECOMMENDATION: 12 month follow-up CT. S Modifier (other clinically significant findings): Coronary calcifications/stent. Aortic valve calci fications.
== END | disposition home or self-care (01) ==
LOC: RADCTMAIN 17:46
PROVIDERS: ATTEND Family Medicine
DX: Z12.2 Encounter for screening for malignant neoplasm of respiratory organs (principal); F17.210 Nicotine dependence, cigarettes, uncomplicated; I25.10 Atherosclerotic heart disease of native coronary artery without angina pectoris
CPT/HCPCS: 71271

== ENCOUNTER → 2023-11-23 | Outpatient (CLI) | payer BC ==
[2023-11-23 11:32] LABS: Basophils # (A) 0.09 X 10*3/uL (0.00-0.10); Basophils % (A) 1.3 %; Eosinophils % (A) 2.8 %; HCT 46.3 % (39.6-50.0); HGB 15.3 g/dL (13.0-17.0); Lymphocytes # (A) 2.78 X 10*3/uL (0.90-5.00); Lymphocytes % (A) 38.7 %; MCH 31.2 pg (27.0-32.0); MCV 94.3 FL (80.0-97.0); Mean Platelet Volume 10.5 FL (9.5-12.2); Monocytes # (A) 0.52 X 10*3/uL (0.20-1.00); Monocytes % (A) 7.2 %; NRBC Per 100 WBC 0 X 10*3/uL (0.00-0.01); Neutrophils # (A) 3.58 X 10*3/uL (1.80-7.70); Neutrophils % (A) 49.7 %; Platelet Count 316 X 10*3/uL (140-440); RBC 4.91 X 10*6/uL (4.40-5.60); RDW 12.6 % (11.5-14.5); WBC 7.19 X 10*3/uL (4.50-10.00)
[2023-11-23 18:51] LABS: ALT 38 U/L (10-49); AST 24 U/L (14-35); Albumin 4.7 g/dL (3.8-4.9); Albumin/Globulin Ratio 1.81 Ratio (1.60-3.17); Alkaline Phosphatase 115 U/L (41-126); Blood Urea Nitrogen 14.9 mg/dL (9.0-27.0); Calcium 9.8 mg/dL (8.7-10.3); Chloride 100 mmol/L (96-109); Chol/HDL Ratio 4.23 Ratio; Globulin 2.6 g/dL (1.6-3.3); Glucose 101 mg/dL (70-110); LDL Cholesterol,Calculated 134.9 mg/dL (0.0-131.0); Potassium 5.1 mmol/L (3.5-5.5); Sodium 136 mmol/L (135-145); T4, Free (Free Thyroxine) 0.88 ng/dL (0.80-1.80); Total Bilirubin 0.2 mg/dL (0.3-1.2); Total Protein 7.3 g/dL (6.2-8.2)
== END | disposition home or self-care (01) ==
LOC: LABWHC1 08:28
PROVIDERS: ATTEND Internal Medicine Interventional Cardiology
DX: E78.2 Mixed hyperlipidemia (principal)
CPT/HCPCS: 36415; 80053; 80061; 84439; 84443; 85025

== ENCOUNTER → 2024-01-02 | Outpatient (CLI) | payer BC | END | disposition home or self-care (01) | LOC: LABWHC1 08:18 | PROVIDERS: ATTEND Internal Medicine Interventional Cardiology | DX: Z53.9 Procedure and treatment not carried out, unspecified reason (principal) ==

== ENCOUNTER → 2024-01-02 | Outpatient (CLI) | payer BC ==
[2024-01-02 15:47] LABS: Basophils # (A) 0.05 X 10*3/uL (0.00-0.10); Basophils % (A) 0.8 %; Eosinophils # (A) 0.24 X 10*3/uL (0.04-0.35); Eosinophils % (A) 3.7 %; HGB 14.9 g/dL (13.0-17.0); Lymphocytes # (A) 2.21 X 10*3/uL (0.90-5.00); Lymphocytes % (A) 33.8 %; MCHC 32.4 g/dL (32.0-37.0); MCV 95.6 FL (80.0-97.0); Mean Platelet Volume 10.2 FL (9.5-12.2); Monocytes # (A) 0.47 X 10*3/uL (0.20-1.00); Monocytes % (A) 7.2 %; NRBC Per 100 WBC 0 X 10*3/uL (0.00-0.01); Neutrophils # (A) 3.55 X 10*3/uL (1.80-7.70); Neutrophils % (A) 54.2 %; Platelet Count 273 X 10*3/uL (140-440); RBC 4.81 X 10*6/uL (4.40-5.60); WBC 6.54 X 10*3/uL (4.50-10.00)
[2024-01-02 16:18] LABS: Calcium 9.6 mg/dL (8.7-10.3); Chloride 100 mmol/L (96-109); Glucose 101 mg/dL (70-110); Potassium 4.8 mmol/L (3.5-5.5); Sodium 138 mmol/L (135-145)
== END | disposition home or self-care (01) ==
LOC: LABPAT 08:21
PROVIDERS: ATTEND Orthopaedic Surgery Hand Surgery
DX: Z01.812 Encounter for preprocedural laboratory examination (principal); G56.02 Carpal tunnel syndrome, left upper limb; M18.12 Unilateral primary osteoarthritis of first carpometacarpal joint, left hand
CPT/HCPCS: 36415; 80048; 85025

== ENCOUNTER 2024-01-09 14:03 | Day surgery (SDC) | payer BC ==
[2024-01-07 16:35] VITALS: BMI 27.3
--- NOTE | 2024-01-08 09:18 | P.HPOR ---
History of Present Illness H&P Date: 01/08/24 Subjective: This is a 52 year old male that presents today for follow up evaluation regarding a year history of progressively worsening left base of the thumb pain. He has pain with pinch, grasp and movement of the thumb. He underwent a thumb CMC steroid injection several months prior and noticed only a few hours of relief from his symptoms. He has tried a metagrip push CMC brace which he states also only made his symptoms worsen. He has a history of a first dorsal compartm ent release performed on this hand last year. Physical Examination: LUE: AIN/PIN/Radial/Ulnar/Median motor intact. Radial/Ulnar/Median SILT. 2+/4 Radial/Ulnar pulses palpated. 5/5 APB, 5/5 FDI. Negative Finkelsteins, positive CMC grind, negative Durkan's compression. Post surgical incision at site of DeQuervains release. Impression: 1.) Left thumb CMC arthritis Plan: Diagnosis and treatment options were discussed with the patient. He has failed conservative treatment over the last year with steroid injections, bracing, NSAIDs and wishes to proceed with left thumb CMC basilar joint arthroplasty. Risks and benefits of surgery including bleeding, infection, damage to surrounding tissue, need for further surgery, residual numbness were discussed and the patient wished to go forward with surgery. 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 The patient was agreeable with this plan. -Juan Carlos San DO Orthopedic Hand/Upper Extremity Surgeon Past Medical History Past Medical History: Hyperlipidemia, Hypertension, Seizure Disorder Additional Past Medical History / Comment(s): LAST SEIZURE 3 YEARS AGO, History of Any Multi-Drug Resistant Organisms: None Reported Past Surgical History: Heart Catheterization With Stent, Orthopedic Surgery Additional Past Surgical History / Comment(s): LT WRIST, COLONOSCOPY Past Anesthesia/Blood Transfusion Reactions: No Reported Reaction Date of Last Stent Placement:: 04/17/23 Smoking Status: Current every day smoker - Past Family History Mother Family Medical History: No Reported History Medications and Allergies Home Medications Medication Instructions Recorded Confirmed Type carBAMazepine [TEGretol] 400 mg PO QAM 05/15/17 01/07/24 History Metoprolol Tartrate [Lopressor] 25 mg PO BID 11/22/21 01/07/24 History Acetaminophen [Tylenol Arthritis] 650 mg PO DIRECTED PRN 04/16/23 01/07/24 History Aspirin 81 mg PO DAILY 04/16/23 01/07/24 History Ibuprofen [Motrin Ib] 600 mg PO DIRECTED PRN 04/16/23 01/07/24 History Sildenafil Citrate 50 mg PO DAILY PRN 04/16/23 01/07/24 History Atorvastatin Calcium 40 mg PO HS #0 04/17/23 01/07/24 Rx Ezetimibe [Zetia] 10 mg PO DAILY 01/07/24 01/07/24 History Allergies Allergy/AdvReac Type Severity Reaction Status Date / Time Penicillins Allergy Swelling Verified 01/07/24 16:02 Physical Examination Osteopathic Statement: *. No significant issues noted on an osteopathic structural exam other than those noted in the History and Physical/Consult.
[~2024-01-09 14:03] MED LIST changes: -DEXAMETHASONE SOD PHOSPHATE 4 MG/ML 1 ML VIAL IV ONE; +HYDROmorphone 0.5 MG/0.5 ML SYRINGE IVP PRN; +LIDOCAINE 1% (10MG/ML) FOR IV START INTRADERMA PRN; -ONDANSETRON 4 MG/2 ML VIAL IVP ONE; -Pre Op ABX Message 1 EACH MISC MISCELLANE ONE; +droPERidol 5 MG/2 ML VIAL IVP ONE; -fentaNYL (PF) 50 MCG/ML 2 ML AMP IV PRN
[2024-01-09] MEDS: LACTATED RINGERS 1,000 ML IV ONE (14:28)
[2024-01-09] MEDS: DEXAMETHASONE SOD PHOSPHATE 4 MG/ML 1 ML VIAL IV ONE (15:24)
[2024-01-09] MEDS: ONDANSETRON 4 MG/2 ML VIAL IVP ONE (15:24)
[2024-01-09] MEDS ORDERED: ePHEDrine 50 MG/ML 1 ML VIAL ONE (16:14)
[2024-01-09] MEDS ORDERED: HYDROmorphone (PF) 1 MG/ML ONE (16:14)
[2024-01-09] MEDS ORDERED: PROPOFOL 10 MG/ML 20 ML VIAL IV ONE (16:14)
[2024-01-09] MEDS ORDERED: fentaNYL (PF) 50 MCG/ML 2 ML AMP ONE (16:14)
[2024-01-09] MEDS ORDERED: LIDOCAINE 1% INJ 10MG/ML (20 ML MDV) ONE (16:14)
[2024-01-09] MEDS ORDERED: MIDAZOLAM 2 MG/2 ML VIAL ONE (16:14)
[2024-01-09] MEDS: BUPIVACAINE (PF) 0.5% 30 ML VIAL SQ ONE (17:24)
--- NOTE | 2024-01-09 17:32 | P.OP ---
Date of Procedure: 01/09/24 Preoperative Diagnosis: 1.) Left carpal tunnel syndrome 2.) Left thumb CMC arthritis Postoperative Diagnosis: 1.) Left carpal tunnel syndrome 2.) Left thumb CMC arthritis Procedure(s) Performed: 1.) Left endoscopic carpal tunnel release 2.) Left thumb CMC basilar joint arthroplasty Implants: Arthrex Swivel Lock suture anchor 3.5mm x 2 Anesthesia: GETA Surgeon: Juan Carlos San Radiotelephone Operator #1: Carlos Dejesus Estimated Blood Loss (ml): 0 Pathology: none sent Condition: stable Disposition: PACU Description of Procedure: This is a 53 year old female who presents today for a left thumb CMC basal joint arthroplasty after having failed conservative treatment for severe thumb CMC arthritis and left endoscopic carpal tunnel release for carpal tunnel syndrome symptoms that have failed conservative treatment. Risks and benefits of surgery were discussed with the patient including bleeding, damage to surrounding tissue, infection, need for further surgery as well as risks of anesthesia including pulmonary embolism and even and the patient wished to proceed with surgical intervention. The patients was seen in the pre-operative area by myself. Consent and H&P were completed and updated. The correct extremity was marked in the pre-operative area by myself and all other questions were answered. Patient received a upper extremity nerve block by the department of anesthesia. He then was brought to the operating room by the department of anesthesia. They remained on the portable stretcher and a rolling hand table was brought to the side of the operative extremity. The patient was then drifted off to sleep by the department of anesthesia. A nonsterile tourniquet was then applied to the operative extremity and the left upper extremity was then prepped and draped in normal sterile fashion. Pre-operative time out was performed indicating the correct patient, procedure and laterality. All in the room agreed. Pre-operative antibiotics were given prior to skin incision. The operative extremity was the exsanguinated with an esmarch bandage and the tourniquet was inflated to 250mmHg. 15 blade scalpel was utilized to make a transverse incision on the palmar skin just ulnar to the palmaris longus tendon at the level of the distal wrist crease. Ragnell retractor was then placed radially and blunt dissection was performed to reveal the distal forearm fascia. This was lifted with fine John pick ups and Littler tenotomy scissors were then used to open the forearm fascia transversely and a double skin hook was then placed. Hamate finder was placed into the carpal tunnel and then sequential sized dilators were inserted followed by the synovial elevator to separate the flexor tenosynovium from the undersurface of the transverse carpal ligament and a washboard texture was felt. The Micro[employer]ire endoscopic carpal tunnel release system gun was the then inserted into the carpal tunnel hugging the deep portion of the transverse carpal ligament in line with the base of the ring finger. Transverse fibers of the lig ament were directly visualized. Pressure was applied on the palm to reveal the distal extent of the transverse carpal ligament. The blade was then deployed and the distal half of the transverse carpal ligament was released. The scope was then brought distal again and remaining transverse fibers were incised with the blade. The proximal half of the transverse carpal ligament was then divided and again the scope was advanced distal and remaining transverse fibers were incised with the blade. The radial and ulnar leaflets were directly visualized and mobile consistent with complete release. Tenotomy scissors were then utilized to release the remaining distal forearm fascia under direct visualization taking care to preserve the palmar cutaneous branch of the median nerve. Longitudinal incision was made over the left thumb CMC joint with a 15 blade scalpel. Blunt dissection was taken down to subcutaneous tissues with littler scissors taking care to preserve the branches of the superficial radial nerve. Dorsal radial artery was identified proximally in the incision and protected throughout the procedure. Scalpel was then made to incise the thumb CMC joint creating full thickness flaps off of the proximal metacarpal base and trapezium, this plane was further developed with a periosteal elevator. Elevator was then utilized to identify the thumb CMC joint and scaphotrapezial joint. McGlamory elevator was then used to excise the trapezium whole. Guidewire was then introduced down to the laser line at the base of the first metacarpal through the same incision and was over drilled. Another guidewire was then inserted at the radial base of the first metacarpal near the Insertion of APL and was then over drilled with normal drill guide. A 3.5mm Arthrex SwiveLock anchor was then inserted into the base of the first metacarpal. While holding the thumb in slight traction and full adduction, another 3.5mm Arthrex SwiveLock anchor was inserted into the base of the second metacarpal and the two strands of fibertape were centered across the first metacarpal base to create a sling around the base suspending the thumb metacarpal, good albino purchase was appreciated. The thumb was successfully suspended and full ROM was achieved passively. Suture ends were cut and skin was closed with several interrupted 4-0 Monocryl sutures followed by a running 4-0 Monocryl stitch. Sterile dressing consisting of steri strips followed by 4x4s cast padding, and a thumb spica plaster splint was applied. Tourniquet was let down and the hand had brisk cap refill and normal perfusion immediately. 15cc's of 0.5% bupivicaine was performed to perform a thumb and carpal tunnel block. The patient was then woken by the department of anesthesia and transferred to PACU in stable condition. Carlos ZAMBRANO was present for the case and assisted in major portions of procedure and protection of vital neurovascular structures. Juan Carlos San D.O. Orthopedic Hand/Upper Extremity Surgeon
[2024-01-09 18:13] VITALS: TEMP 97
[2024-01-09] MEDS: droPERidol 5 MG/2 ML VIAL IVP ONE (18:20)
[2024-01-09 18:53] VITALS: BP 112/68; PULSE 65; RESP 18
== END 2024-01-09 18:51 | disposition home or self-care (01) ==
LOC: OR 14:03
PROVIDERS: ATTEND Orthopaedic Surgery Hand Surgery
DX: G56.02 Carpal tunnel syndrome, left upper limb (principal); M18.12 Unilateral primary osteoarthritis of first carpometacarpal joint, left hand; E78.5 Hyperlipidemia, unspecified; G40.909 Epilepsy, unspecified, not intractable, without status epilepticus; I10 Essential (primary) hypertension; F17.200 Nicotine dependence, unspecified, uncomplicated; Z88.0 Allergy status to penicillin; Z79.899 Other long term (current) drug therapy; Z79.1 Long term (current) use of non-steroidal anti-inflammatories (NSAID); Z79.82 Long term (current) use of aspirin
CPT/HCPCS: 29848; 25447; C1713; J2250; J1100; J0690; J2405; J2001; J3010; J1170; J2704; J1790; J0665

== ENCOUNTER → 2024-11-14 | Outpatient (CLI) | payer BC ==
--- NOTE | 2024-11-17 10:35 | CTL ---
EXAMINATION TYPE: CT Low Dose Lung DATE OF EXAM: 11/14/2024 11:24 AM COMPARISON: None. SCREENING VISIT: Initial CT DIAGNOSTIC QUALITY: Satisfactory CLINICAL INDICATION: Male, 54 years old with history of Z12.2 Screening, Personal history of tobacco use, Lung cancer screening, History of tobacco use. TECHNIQUE: Low dose computed tomography scan was performed through the chest at 1 mm thick sections a nd reconstructed images in the coronal plane at 1 mm thick sections. Contrast used: mL of , (none if empty) Oral contrast used: (none if empty) CT DLP: 94.4 mGycm, Automated exposure control for dose reduction was used. CT CTDI: 2.5 mGy, Automated exposure control for dose reduction was used. FINDINGS: LUNG NODULES: Present, detailed below: 1. There is a peripheral left midlung nodule measuring 0.4 cm. Series 4 image 128. LUNGS: COPD: Severity: None Fibrosis: Severity: None Lymph nodes: None Other findings: None RIGHT PLEURAL SPACE: Effusion: None Calcification: None Thickening: None Pneumothorax: None LEFT PLEURAL SPACE: Effusion: None Calcification: None Thickening: None Pneumothorax: None HEART: Other: Ascending thoracic aorta at the level the main pulmonary artery measures 3.6 cm. The main pul monary artery at the bifurcation measures 2.3 cm. Heart Size: Normal Coronary calcification: Moderate Pericardial effusion: None OTHER FINDINGS: Upper abdomen: Normal Bony thorax: Normal Supraclavicular region: Normal IMPRESSION: Small peripheral nodule. Monitoring in 6 months is recommended. FOLLOW UP CT CHEST RECOMMENDATION: Follow-up CT chest [address] LUNG RAD: Lung-Rad 3 [facility], Workstation: [id number], 11/14/2024 6:11 PM
== END | disposition home or self-care (01) ==
LOC: RADCTMAIN 11:05
PROVIDERS: ATTEND Family Medicine
DX: Z12.2 Encounter for screening for malignant neoplasm of respiratory organs (principal); F17.210 Nicotine dependence, cigarettes, uncomplicated; R91.8 Other nonspecific abnormal finding of lung field
CPT/HCPCS: 71271

== ENCOUNTER 2025-02-19 14:53 | Emergency (ER) | payer BC, OTHER ==
[2025-02-19 15:12] VITALS: PULSE 58; RESP 18; TEMP 97.9
--- NOTE | 2025-02-19 15:59 | ED ---
Abdominal Pain HPI - General Chief Complaint: Abdominal Pain Stated Complaint: Abd Pain Time Seen by Provider: 02/19/25 15:10 Source: patient, family Mode of arrival: ambulatory Limitations: no limitations - History of Present Illness Initial Comments: 54-year-old male with past medical history of hyperlipidemia, hypertension who presents to the emergency department with right upper quadrant pain. States that he went to urgent care to get a work note for today. His family had a stomach bug yesterday and he was still feeling nauseated this morning therefore he did not go to work. When urgent care was evaluating the patient he had right upper quadrant pain and they wanted him evaluated for cholecystitis. Patient does admit to tenderness to palpation but denies other pain. No fevers. Has been nauseated this morning without vomiting. Denies chest pain or shortness of breath. Admits to dark stools after taking Pepto this morning. No other alleviating, precipitating or modifying factors - Related Data Home Medications Medication Instructions Recorded Confirmed carBAMazepine [TEGretol] 400 mg PO QAM 05/15/17 01/09/24 Metoprolol Tartrate [Lopressor] 25 mg PO BID 11/22/21 01/09/24 Acetaminophen [Tylenol Arthritis] 650 mg PO DIRECTED PRN 04/16/23 01/09/24 Aspirin 81 mg PO DAILY 04/16/23 01/09/24 Ibuprofen [Motrin Ib] 600 mg PO DIRECTED PRN 04/16/23 01/09/24 Sildenafil Citrate 50 mg PO DAILY PRN 04/16/23 01/09/24 Ezetimibe [Zetia] 10 mg PO DAILY 01/07/24 01/09/24 Previous Rx's Medication Instructions Recorded Atorvastatin Calcium 40 mg PO HS #0 04/17/23 HYDROcodone/APAP 5-325MG [[place] 1 tab PO Q6HR PRN 3 Days #24 tab 01/09/24 5-325] Ondansetron Odt [Zofran Odt] 4 mg PO Q8HR PRN #20 tab 02/19/25 Allergies Allergy/AdvReac Type Severity Reaction Status Date / Time Penicillins Allergy Swelling Verified 02/19/25 15:12 Review of Systems ROS Statement: Those systems with pertinent positive or pertinent negative responses have been documented in the HPI. ROS Other: All systems not noted in ROS Statement are negative. Past Medical History Past Medical History: Hyperlipidemia, Hypertension, Seizure Disorder History of Any Multi-Drug Resistant Organisms: None Reported Past Surgical History: No Surgical Hx Reported Past Psychological History: No Psychological Hx Reported Smoking Status: Current every day smoker Past Alcohol Use History: Occasional General Exam Limitations: no limitations General appearance: alert, in no apparent distress Head exam: Present: atraumatic, normocephalic, normal inspection Eye exam: Present: normal appearance, PERRL, EOMI. Absent: scleral icterus, conjunctival injection, periorbital swelling ENT exam: Present: normal exam, mucous membranes moist Neck exam: Present: normal inspection. Absent: tenderness, meningismus, lymphadenopathy Respiratory exam: Present: normal lung sounds bilaterally. Absent: respiratory distress, wheezes, rales, rhonchi, stridor Cardiovascular Exam: Present: regular rate, normal rhythm, normal heart sounds. Absent: systolic murmur, diastolic murmur, rubs, gallop, clicks GI/Abdominal exam: Present: soft, tenderness (ruq), normal bowel sounds. Absent: distended, guarding, rebound, rigid Extremities exam: Present: normal inspection, full ROM, normal capillary refill. Absent: tenderness, pedal edema, joint swelling, calf tenderness Back exam: Present: normal inspection Neurological exam: Present: alert, oriented X3, CN II-XII intact Psychiatric exam: Present: normal affect, normal mood Skin exam: Present: warm, dry, intact, normal color. Absent: rash Course Vital Signs 02/19/25 02/19/25 15:07 16:37 Temperature 97.9 F Pulse Rate 58 L 58 L Respiratory 18 18 Rate Blood Pressure 138/80 131/74 O2 Sat by Pulse 98 99 Oximetry Medical Decision Making - Medical Decision Making Was pt. sent in by a medical professional or institution (, PA, CROWNING HAMMER OPERATOR, urgent care, hospital, or jail...) When possible be specific @ -Patient sent in from urgent care Did you speak to anyone other than the patient for history (EMS, parent, family, police, friend...)? What history was obtained from this source @ -Woke with for history Did you review nursing and triage notes (agree or disagree)? Why? @ -I reviewed and agree with nursing and triage notes Were old charts reviewed (outside hosp., previous admission, EMS record, old EKG, old radiological studies, urgent care reports/EKG's, jail records)? Report findings @ -No old charts were reviewed Differential Diagnosis (chest pain, altered mental status, abdominal pain women, abdominal pain men, vaginal bleeding, weakness, fever, dyspnea, syncope, headache, dizziness, GI bleed, back pain, seizure, CVA, palpatations, mental health, musculoskeletal)? @ -Differential Abdominal Pain Men: Appendicitis, cholecystitis, diverticulosis, ischemic bowel, pancreatitis, hepatitis, UTI, gastroenteritis, AAA, incarcerated hernia, bowel obstruction, constipation, inflammatory bowel, hepatitis, peptic ulcer disease, splenic infarction, perforated viscus, testicular torsion, this is not meant to be an all-inclusive list EKG interpreted by me (3pts min.). @ -Not done X-rays interpreted by me (1pt min.). @ -None done CT interpreted by me (1pt min.). @ -None done U/S interpreted by me (1pt. min.). @ -Yes which demonstrates no acute findings What testing was considered but not performed or refused? (CT, X-rays, U/S, labs)? Why? @ -None What meds were considered but not given or refused? Why? @ -None Did you discuss the management of the patient with other professionals (professionals i.e. , PA, CROWNING HAMMER OPERATOR, lab, RT, psych nurse, licensed master social worker, african studies professor, teacher, loss prevention officer, case managers)? Give summary @ -No Was smoking cessation discussed for >3mins.? @ -No Was critical care preformed (if so, how long)? @ -No Were there social determinants of health that impacted care today? How? (Homelessness, low income, unemployed, alcoholism, drug addiction, transportation, low edu. Level, literacy, decrease access to med. care, fdc, rehab)? @ -No Was there de-escalation of care discussed even if they declined (Discuss DNR or withdrawal of care, Hospice)? DNR status @ -No What co-morbidities impacted this encounter? (DM, HTN, Smoking, COPD, CAD, Cancer, CVA, ARF, Chemo, Hep., AIDS, mental health diagnosis, sleep apnea, morbid obesity)? @ -None Was patient admitted / discharged? Hospital course, mention meds given and route, prescriptions, significant lab abnormalities, going to OR and other pertinent info. @ -Upon arrival patient seen and evaluated in [facility]. Thorough history and physical exam was performed. Laboratory studies are conducted. Ultrasound was performed. Results are discussed with the patient. Patient will be discharged home at this time. Instructed to follow-up with his doctor and return for any new or worsening symptoms. Undiagnosed new problem with uncertain prognosis? @ -No Drug Therapy requiring intensive monitoring for toxicity (Heparin, Nitro, Insulin, Cardizem)? @ -No Were any procedures done? @ -No Diagnosis/symptom? @ -Acute nausea vomiting, acute right upper quadrant abdominal pain Acute, or Chronic, or Acute on Chronic? @ -Acute Uncomplicated (without systemic symptoms) or Complicated (systemic symptoms)? @ -Complicated Side effects of treatment? @ -No Exacerbation, Progression, or Severe Exacerbation? @ -No Poses a threat to life or bodily function? How? (Chest pain, [place], [place], pneumonia, PE, COPD, DKA, ARF, appy, cholecystitis, CVA, Diverticulitis, Homicidal, Suicidal, threat to staff... and all critical care pts) @ -No - Lab Data Result diagrams: 02/19/25 15:40 02/19/25 15:40 Lab Results 02/19/25 02/19/25 Range/Units 15:40 15:40 WBC 6.56 (4.50-10.00) 10*3/uL RBC 4.67 (4.40-5.60) 10*6/uL Hgb 14.8 (13.0-17.0) g/dL Hct 42.8 (39.6-50.0) % MCV 91.6 (80.0-97.0) fL MCH 31.7 (27.0-32.0) pg MCHC 34.6 (32.0-37.0) g/dL Plt Count 268 (140-440) 10*3/uL MPV 10.2 (9.5-12.2) fL Immature Gran % (Auto) 0.3 % Neutrophils % 44.6 % Lymphocytes % 45.0 % Monocytes % 7.3 % Eosinophils % 2.0 % Basophils % 0.8 % Immature Gran # 0.02 (0.00-0.04) 10*3/uL Neutrophils # 2.93 (1.80-7.70) 10*3/uL Lymphocytes # 2.95 (0.90-5.00) 10*3/uL Monocytes # 0.48 (0.20-1.00) 10*3/uL Eosinophils # 0.13 (0.04-0.35) 10*3/uL Basophils # 0.05 (0.00-0.10) 10*3/uL Sodium 135 L (137-145) mmol/L Potassium 4.6 (3.5-5.1) mmol/L Chloride 100 (98-107) mmol/L Carbon Dioxide 25 (22-30) mmol/L Anion Gap 10 mmol/L BUN 14 (9-20) mg/dL Creatinine 1.04 (0.66-1.25) mg/dL Est GFR (CKD-EPI)AfAm >90 (>60 ml/min/1.73 sqM) Est GFR (CKD-EPI)NonAf 83 (>60 ml/min/1.73 sqM) Glucose 83 (74-99) mg/dL Calcium 9.6 (8.4-10.2) mg/dL Total Bilirubin 0.4 (0.2-1.3) mg/dL AST 31 (17-59) U/L ALT 59 H (4-49) U/L Alkaline Phosphatase 118 (38-126) U/L Total Protein 7.3 (6.3-8.2) g/dL Albumin 4.6 (3.5-5.0) g/dL Lipase 79 (23-300) U/L Disposition Clinical Impression: Nausea & vomiting, RUQ pain Disposition: HOME SELF-CARE Condition: Stable Instructions (If sedation given, give patient instructions): Acute Nausea and Vomiting (ED) Additional Instructions: Please use the Zofran as needed for nausea. Follow-up with your doctor within 2 to 4 days and return for any new or worsening symptoms Prescriptions: Ondansetron Odt [Zofran Odt] 4 mg PO Q8HR PRN #20 tab PRN Reason: Nausea Is patient prescribed a controlled substance at d/c from ED?: No Referrals: Marlo Matthews DO [Primary Care Provider] - 1-2 days Time of Disposition: 16:43
[2025-02-19 16:07] LABS: Basophils # (A) 0.05 10*3/uL (0.00-0.10); Basophils % (A) 0.8 %; Eosinophils # (A) 0.13 10*3/uL (0.04-0.35); HCT 42.8 % (39.6-50.0); HGB 14.8 g/dL (13.0-17.0); Lymphocytes # (A) 2.95 10*3/uL (0.90-5.00); MCH 31.7 pg (27.0-32.0); MCHC 34.6 g/dL (32.0-37.0); MCV 91.6 fL (80.0-97.0); Mean Platelet Volume 10.2 fL (9.5-12.2); Monocytes # (A) 0.48 10*3/uL (0.20-1.00); Monocytes % (A) 7.3 %; Neutrophils # (A) 2.93 10*3/uL (1.80-7.70); Neutrophils % (A) 44.6 %; Platelet Count 268 10*3/uL (140-440); RBC 4.67 10*6/uL (4.40-5.60); WBC 6.56 10*3/uL (4.50-10.00)
[2025-02-19 16:11] LABS: ALT 59 U/L (4-49); AST 31 U/L (17-59); African American GFR (CKD) >90 (>60 ml/min/1.73 sqM); Albumin 4.6 g/dL (3.5-5.0); Alkaline Phosphatase 118 U/L (38-126); Anion Gap 10 mmol/L; Blood Urea Nitrogen 14 mg/dL (9-20); Calcium 9.6 mg/dL (8.4-10.2); Carbon Dioxide 25 mmol/L (22-30); Chloride 100 mmol/L (98-107); Glucose 83 mg/dL (74-99); Lipase 79 U/L (23-300); Non-African American GFR(CKD) 83 (>60 ml/min/1.73 sqM); Potassium 4.6 mmol/L (3.5-5.1); Sodium 135 mmol/L (137-145); Total Bilirubin 0.4 mg/dL (0.2-1.3); Total Protein 7.3 g/dL (6.3-8.2)
--- NOTE | 2025-02-19 16:29 | US ---
EXAMINATION TYPE: US gallbladder DATE OF EXAM: 02/19/2025 COMPARISON: NONE CLINICAL INDICATION: Male, 54 years old with history of ruq pain, vomiting; ruq pain x 1 hour, pt isai t to dr and dr sent him here, ot family had flu all week, pt just getting over flu, vomiting twice TECHNIQUE: Grayscale and color Doppler imaging of the right upper quadrant. FINDINGS: EXAM MEASUREMENTS: Liver Length: 17.5cm Gallbladder Wall: 0.2cm CBD: 0.4cm color Doppler imaging was utilized to isolate the common bile duct for measurement. Right Kidney: 11.2x6.0x6.2cm ELECTRICAL SYSTEMS ENGINEER NOTES: slightly limited due to overlying bowel Pancreas: Tail obscured by overlying bowel gas Liver: Heterogenous echotexture Anechoic area compatible with cyst seen within left lobe: 1.3x1.4x1.4cm Gallbladder: No stones seen Evidence for sonographic Pike's sign: No CBD: wnl Right Kidney: No hydronephrosis or masses seen IMPRESSION: 1. Hepatic cyst. 2. [facility] Emely Hickey, , 02/19/2025 4:26 PM
[2025-02-19 16:37] VITALS: BP 131/74
== END 2025-02-19 16:52 | disposition home or self-care (01) ==
LOC: EC 14:53
DX: R10.11 Right upper quadrant pain (principal); R11.2 Nausea with vomiting, unspecified; E78.5 Hyperlipidemia, unspecified; I10 Essential (primary) hypertension; F17.200 Nicotine dependence, unspecified, uncomplicated; Z88.0 Allergy status to penicillin
CPT/HCPCS: 36415; 76705; 80053; 83690; 85025; 99284

== ENCOUNTER → 2025-04-17 | Outpatient (CLI) | payer OTHER ==
[2025-04-17 15:33] LABS: ALT 45 U/L (10-49); AST 27 U/L (14-35); Albumin 4.6 g/dL (3.8-4.9); Albumin/Globulin Ratio 2.00 Ratio (1.60-3.17); Alkaline Phosphatase 115 U/L (41-126); Anion Gap 8.60 mmol/L (4.00-12.00); BUN/Creat Ratio 16.70 Ratio (12.00-20.00); Blood Urea Nitrogen 16.7 mg/dL (9.0-27.0); Calcium 9.4 mg/dL (8.7-10.3); Carbon Dioxide 25.4 mmol/L (21.6-31.8); Chloride 102 mmol/L (96-109); Cholesterol 184.00 mg/dL (0.00-200.00); Globulin 2.3 g/dL (1.6-3.3); Glucose 96 mg/dL (70-110); HDL Cholesterol 44.80 mg/dL (40.00-60.00); LDL Cholesterol,Calculated 114.0 mg/dL (0.0-131.0); Potassium 4.7 mmol/L (3.5-5.5); Sodium 136 mmol/L (135-145); Total Protein 6.9 g/dL (6.2-8.2); Triglycerides 126.00 mg/dL (0.00-149.00); VLDL Calculation 25.20 mg/dL (5.00-40.00)
== END | disposition home or self-care (01) ==
LOC: LABWHC1 10:07
PROVIDERS: ATTEND Nurse Practitioner Adult Health
DX: I10 Essential (primary) hypertension (principal); E78.2 Mixed hyperlipidemia
CPT/HCPCS: 36415; 80053; 80061